=== PATIENT | male | born 1945 | race Two or more races ===

== ENCOUNTER 2017-05-11 07:11 | Outpatient (CLI) | payer MEDICARE ==
[~2017-05-11] VITALS: Ht 172.7 cm; Wt 105.0 kg
[~2017-05-11 07:11] MED LIST: /CELE20CA PO; AMLO10TA2 PO; AMLO5TAB OR; ASPI81TA85 PO; BENA25CA2 PO; CHOL4POW2 PO; DIOV160T5 OR; DOXE10CA2 OR; FISH1000 OR; GABA-279 PO; GLIP5TAB8 PO; HYDR-3713 PO; HYDR25TA6 OR; HYDR50TA8 OR; HYDROXYCHLOROQUINE OR; INFL10VL IV; ISOS30TA4 OR; LOPR100T OR; MESAPOW PO; MULTCAP PO; NEUR100C OR; NEUR300C PO; NOVO70VL SC; OCUVTAB PO; PRED5EL OR; PREVALITE PO; RANI1TAB6 PO; SIMV20TA2 OR; TIZA4CAP3 PO; TRAM50TA2 PO; VALS1TAB47 PO; WELCHOL OR; [UNRECOGNIZED DRUG - CODE] PO; [UNRECOGNIZED DRUG - OTHER]; diphenhydrAMINE 25 MG CAP PO SCH
[2017-05-11] MEDS ORDERED: NS 1,000 ML IV SCH (07:30)
[2017-05-11] MEDS ORDERED: inFLIXimab INJECTION 600 MG in NS 190 ML IV ONE (08:00)
== END 2017-05-11 10:15 | disposition home or self-care (01) ==
LOC: M INFU 07:11
PROVIDERS: ATTEND Internal Medicine Gastroenterology
DX: K51.90 Ulcerative colitis, unspecified, without complications (principal); Z79.899 Other long term (current) drug therapy; Z79.82 Long term (current) use of aspirin
CPT/HCPCS: 96413; 96415; J1745

== ENCOUNTER → 2017-06-01 | Outpatient (REF) | payer MEDICARE ==
[~2017-06-01] MED LIST changes: +CALC1TAB7 PO; -[UNRECOGNIZED DRUG - CODE] PO; -diphenhydrAMINE 25 MG CAP PO SCH
[2017-06-01 17:10] LABS: BASO % 0.5 % (0.0-1.0); EOS # 0.4 K/mm3 (0.0-0.50); EOS % 6.1 % (0.0-3.0); LARGE UNSTAINED CELL # 0.2 K/mm3 (0.0-0.4); LARGE UNSTAINED CELL % 2.3 % (0.0-4.0); LYMPH # 2.1 K/mm3 (1.5-4.5); LYMPH % 29.4 % (24.0-44.0); MEAN CORPUSCULAR HEMOGLOBIN 29.6 pg (27.0-33.0); MEAN CORPUSCULAR HGB CONC 33.3 g/dl (32.0-36.5); MEAN CORPUSCULAR VOLUME 88.9 fl (80.0-96.0); MONO # 0.5 K/mm3 (0.0-0.8); MONO % 7.9 % (0.0-5.0); NEUTROPHILS # 3.6 K/mm3 (1.8-7.7); NEUTROPHILS % 53.8 % (36.0-66.0); PLATELET COUNT, AUTOMATED 368 k/mm3 (150-450); RED CELL DISTRIBUTION WIDTH 15.4 % (11.5-14.5); WHITE BLOOD COUNT 6.7 K/mm3 (4.0-10.0)
[2017-06-01 17:49] LABS: ALBUMIN 3.9 GM/DL (3.2-5.2); ALBUMIN/GLOBULIN RATIO 1.05 (1.00-1.93); ALKALINE PHOSPHATASE 55 U/L (45-117); ALT/SGPT 30 U/L (12-78); ANION GAP 5 MEQ/L (8-16); AST/SGOT 20 U/L (15-37); BILIRUBIN,TOTAL 0.5 MG/DL (0.2-1.0); BLOOD UREA NITROGEN 26 MG/DL (7-18); CALCIUM LEVEL 8.8 MG/DL (8.8-10.2); CARBON DIOXIDE LEVEL 29 MEQ/L (21-32); CHLORIDE LEVEL 107 MEQ/L (98-107); CREATININE FOR GFR 0.94 MG/DL (0.70-1.30); GLOMERULAR FILTRATION RATE > 60.0 (>42); GLUCOSE, FASTING 149 MG/DL (83-110); POTASSIUM SERUM 4.6 MEQ/L (3.5-5.1); SODIUM LEVEL 141 MEQ/L (136-145); TOTAL PROTEIN 7.6 GM/DL (6.4-8.2)
== END ==
LOC: M SFHCCAPE 13:31
PROVIDERS: ATTEND Physician Assistant
DX: R31.0 Gross hematuria (principal); R35.0 Frequency of micturition; R39.15 Urgency of urination; B96.1 Klebsiella pneumoniae [K. pneumoniae] as the cause of diseases classified elsewhere; E11.9 Type 2 diabetes mellitus without complications; Z79.82 Long term (current) use of aspirin; Z85.46 Personal history of malignant neoplasm of prostate; Z87.891 Personal history of nicotine dependence
CPT/HCPCS: 80053; 81001; 81002; 85025; 87088; 87186; G0463

== ENCOUNTER 2017-06-29 07:06 | Outpatient (CLI) | payer MEDICARE ==
[~2017-06-29] VITALS: Ht 172.7 cm; Wt 105.0 kg
[~2017-06-29 07:06] MED LIST changes: +diphenhydrAMINE 25 MG CAP PO SCH
[2017-06-29] MEDS ORDERED: NS 1,000 ML IV SCH (07:15)
[2017-06-29] MEDS ORDERED: inFLIXimab INJECTION 600 MG in NS 190 ML IV ONE (08:00)
== END 2017-06-29 10:00 | disposition home or self-care (01) ==
LOC: M INFU 07:06
PROVIDERS: ATTEND Internal Medicine Gastroenterology
DX: K51.90 Ulcerative colitis, unspecified, without complications (principal); Z79.899 Other long term (current) drug therapy
CPT/HCPCS: 96413; 96415; J1745

== ENCOUNTER → 2020-05-01 | Outpatient (CLI) | payer MEDICARE ==
[~2020-05-01] MED LIST changes: -/CELE20CA PO; +ACET-683 PO; -AMLO10TA2 PO; +AMLO10TA5 PO; +APRI0.37 PO; +ATOR80TA59 PO; -CALC1TAB7 PO; +CALC260T PO; +CELE1CAP4 PO; +GABA-1171 PO; -GABA-279 PO; +HYDR200T3 PO; -HYDR25TA6 OR; +HYDR25TA6 PO; +HYDR500C3 PO; +INSU100I12 SQ; +INSUHUMDS SC; +INSULADS INJ; +LEVO750T13 PO; +LOSA25TA14 PO; +LOSA50TA88 PO; +METO5TAB2 PO; +RANI-397 PO; -RANI1TAB6 PO; +TIZA4CAP PO; -TIZA4CAP3 PO; -VALS1TAB47 PO; +VALS1TAB67 PO; -diphenhydrAMINE 25 MG CAP PO SCH
--- NOTE | 2020-05-01 16:27 | REP ---
ABDOMINAL SERIES: Supine and erect views of the abdomen demonstrate no evidence of free intraperitoneal air with evidence of small bowel obstruction. There is mild air and fecal material scattered throughout the colon. Metallic screws are seen in the region of the lumbosacral junction. Multiple metallic clips are seen in the pelvis. There are degenerative changes of the spine. There are scattered vascular calcifications. An accompanying view of the chest demonstrates increased interstitial markings diffusely, most compatible with diffuse interstitial fibrosis, although a superimposed interstitial pneumonitis cannot totally be excluded. Heart is normal in size. There is mild calcification of the thoracic aorta. Mediastinal silhouette is otherwise unremarkable. IMPRESSION: No free air or obstruction. Increased interstitial markings in the lungs are probably chronic in nature, but superimposed interstitial pneumonitis cannot totally be excluded. Electronically Signed by Ryan Gracia MD 05/05/2020 06:45 P
== END ==
LOC: M WUC 15:21
PROVIDERS: ATTEND Physician Assistant
DX: R10.84 Generalized abdominal pain (principal); R12 Heartburn

== ENCOUNTER 2020-05-06 11:13 | Inpatient (IN) | payer MEDICARE ==
[~2020-05-06] VITALS: Ht 172.7 cm; Wt 105.2 kg
[~2020-05-06 11:13] MED LIST changes: -ACET-683 PO; -APRI0.37 PO; -ATOR80TA59 PO; -HYDR200T3 PO; -HYDR500C3 PO; -INSU100I12 SQ; -INSUHUMDS SC; -INSULADS INJ; -LEVO750T13 PO; -LOSA25TA14 PO; -LOSA50TA88 PO; -METO5TAB2 PO
[2020-05-06] MEDS ORDERED: HYDR200T3 PO (11:38)
[2020-05-06] MEDS ORDERED: HYDR500C3 PO ×2 (11:38→22:57)
[2020-05-06] MEDS ORDERED: APRI0.37 PO (11:38)
[2020-05-06] MEDS ORDERED: INSULADS INJ (11:38)
[2020-05-06] MEDS ORDERED: LOSA25TA14 PO (11:38)
[2020-05-06] MEDS ORDERED: ATOR80TA59 PO (11:38)
[2020-05-06] MEDS ORDERED: INSU100I12 SQ (11:38)
[2020-05-06 11:54] LABS: BASO % 0.2 % (0.0-1.0); EOS % 0.2 % (0.0-3.0); HEMATOCRIT 40.1 % (42.0-52.0); HEMOGLOBIN 13.3 g/dl (13.5-17.5); LYMPH # 1.5 10^3/uL (1.5-5.0); LYMPH % 11.8 % (24.0-44.0); MEAN CORPUSCULAR HEMOGLOBIN 32.3 pg (27.0-33.0); MEAN CORPUSCULAR HGB CONC 33.2 g/dl (32.0-36.5); MEAN CORPUSCULAR VOLUME 97.3 fl (80.0-96.0); MONO # 1.2 10^3/uL (0.0-0.8); MONO % 9.8 % (0.0-5.0); NEUTROPHILS # 9.8 10^3/uL (1.5-8.5); NEUTROPHILS % 77.4 % (36.0-66.0); PLATELET COUNT, AUTOMATED 596 10^3/uL (150-450); RED BLOOD COUNT 4.12 10^6/uL (4.30-6.10); WHITE BLOOD COUNT 12.6 10^3/uL (4.0-10.0)
[2020-05-06] MEDS ORDERED: ONDANSETRON 4MG/2ML VIAL IV ONE ×2 (12:15→14:30)
[2020-05-06 12:51] LABS: ALBUMIN 3.6 GM/DL (3.2-5.2); BILIRUBIN,DIRECT 0.3 MG/DL (0.0-0.2); BILIRUBIN,TOTAL 0.9 MG/DL (0.2-1.0); CALCIUM LEVEL 9.7 MG/DL (8.8-10.2); CK-MB VALUE MASS 1.5 NG/ML (<3.6); CREATININE FOR GFR 1.3 MG/DL (0.70-1.30); MB/CK RELATIVE INDEX 0.85 (< OR =4); POTASSIUM SERUM 3.5 MEQ/L (3.5-5.1); TOTAL PROTEIN 8.2 GM/DL (6.4-8.2); TROPONIN I 0.02 NG/ML (< 0.10)
[2020-05-06] MEDS ORDERED: CIPROFLOXACIN 400 MG in IV 1 EA IV ONE (14:30)
[2020-05-06] MEDS: GASTROGRAFIN SOLUTION 30ML PO SCH ×2 (14:59→15:27)
[2020-05-06] MEDS ORDERED: ISOVUE-370 76% 100ML VIAL As Ordered ONE (16:17)
[2020-05-06] MEDS ORDERED: ONDANSETRON 4MG/2ML VIAL IV PRN (18:45)
[2020-05-06] MEDS ORDERED: DEXTROSE 50% 50 ML SYRINGE IV PRN (19:30)
[2020-05-06] MEDS ORDERED: NS 1,000 ML IV SCH (19:30)
[2020-05-06] MEDS ORDERED: GLUCAGON INJ 1MG VIAL SC PRN (19:30)
[2020-05-06] MEDS ORDERED: GLUCOSE 4GM CHEW TABLET PO PRN (19:30)
--- NOTE | 2020-05-06 19:33 | HPEPDOC ---
[facility] Medical History & Physical Date of Admission May 06, 2020 Date of Service: May 06, 2020 Attending Physician: CAROLE WU MD History and Physical CHIEF COMPLAINT: Nausea, vomiting HISTORY OF PRESENT ILLNESS: Patient is a 75 year old male with a past medical history significant for bladder cancer s/p chemotherapy in 2017 and cystectomy with diverting urostomy in 2018, prostate cancer s/p prostatectomy, ulcerative colitis on remicade infusions, and ASCVD with history of RCA stent who presented to the [facility] ER with complaint of nausea and vomiting for 1 week duration. Patient stated that about 1 week ago he had developed nausea and vomiting. He states that he also had some constipation. At first he went to Urgent Care where he received medication for his constipation. He stated that yesterday he had multiple bowel movements. He denied any bloody bowel movement. He denies any abdominal pain. This morning he states that he continued to develop nausea and vomiting as well as decreased appetite. He has been unable to tolerate any PO intake. He subsequently presented to the ED. In the ED the patient was vitally stable. He was hypertensive on presentation. He had a mild leukocytosis. CT imaging of the abdomen and pelvis was obtained which demonstrated distended stomach and possible gastric outlet obstruction. Surgery was contacted through the ER with recommendations for medical management for now. Hospitalist service was consulted PAST MEDICAL HISTORY: 1. Bladder Cancer in 2017 s/p cystectomy and diverting urostomy 2. Prostatic Cancer s/p Prostatectomy 3. ASCVD s/p RCA stent in 1998 4. Diabetes Mellitus Type 2 5. Bilateral Carpal Tunnel 6. Hypertension 7. Ulcerative Colitis on Remicade PAST SURGICAL HISTORY: 1. Cystectomy with Diverting urostomy 2. Prostatectomy 2/2 Prostatic Cancer 3. Carpal Tunnel Release SOCIAL HISTORY: Patient is and lives at home with his . He spends [place] in [place] and his [place] in [place]. He is a former smoker. He started when he was 18 and smoked about 2 ppd until 1995. He was a heavy drinker in the past but quit in 1998. He denies any IV or illicit drug use FAMILY HISTORY: Family history is positive for HTN and ASCVD ALLERGIES: Please see below. REVIEW OF SYSTEMS: CONSTITUTIONAL: Denies fevers, chills. Denies unintentional weight loss or weight gain HEENT: Denies changes in vision. Denies difficulty swallowing CARDIOVASCULAR: Denies chest pain. denies palpitations RESPIRATORY: Denies shortness of breath. Denies cough GASTROINTESTINAL: Admits to nausea and vomiting and constipation. Denies bloody stools. Denies abdominal pain GENITOURINARY: Denies changes in urostomy output SKIN: Denies rashes or lesions MUSCULOSKELETAL: Denies muscle weakness NEUROLOGICAL: Denies changes in gait or speech PSYCHIATRIC: Denies depression or anxiety ENDOCRINE: Denies heat intolerance or cold intolerance HEMATOLOGIC/LYMPHATIC: Denies easy bruising or bleeding. Denies history of DVT or PE HOME MEDICATIONS: Please see below. PHYSICAL EXAMINATION: VITAL SIGNS: Temperature 97.7, pulse 99, respiratory rate 18, blood pressure 149/79, pulse oximetry 92% on room air. GENERAL APPEARANCE: Awake, alert, and oriented. Appears in no acute distress. Lying comfortably in bed. HEENT: Atrauamtic, normocephalic. Eyes are nonicteric. Trachea is midline. NG tube is in place and suction gastric contents CARDIOVASCULAR: normal S1, S2. Regular rate and rhythm. No clicks, rubs, or murmurs LUNGS: Clear vesicular breath sounds bilaterally. Good respiratory effort. No wheezes, rhonchi, or rales. Symmetric chest expansion. ABDOMEN: Soft, nondistended. Nontender. Normoactive bowel sounds. Urostomy bag in place with clear appearing urine. EXTREMITIES: No edema. Full and equal pulses in bilateral upper and lower extremities NEUROLOGICAL: No focal neurological deficits PSYCHIATRIC: Mood and affect appear appropriate LABORATORY DATA: See below. IMAGING: CT abdomen and pelvis demonstrating distended stomach with possible partial gastric outlet obstruction, bilateral hydronephrosis w/ileal diversion. MICROBIOLOGY: Please see below. ASSESSMENT: Patient is a 75 year old male who presented to [facility] with complaint of nausea and vomiting for 1 week duration and found to have a distended stomach wi th partial gastric outlet obstruction . PLAN: 1. Nausea and Vomiting 2/2 Gastric Outlet Obstruction vs ileus -Patient presenting with stomach distension per CT imaging. NG tube has been placed and stomach has been decompressed. Patient noted improvement in nausea and vomiting s/p NG tube placement. ER has contacted General surgery who recommended medical management for now as the cause may be secondary to an ileus -NG tube inserted and on LIS -NPO -Will start empiric antibiotic coverage with Rocephin and Flagyl -General Surgery Consulted. Recommendations appreciated 2. HTN -Currently normotensive. -NPO will resume meds once tolerating PO 3. DMII -Finger Sticks ACHS due to NPO status 4. Ulcerative Colitis -Will hold patients maintenance medication while NPO -his ulcerative colitis has been in remission for many years. He denies any bloody stools or abdominal pain. 5. UTI -Urine from urostomy bag appears dirty. Will culture. He is on empiric coverage with Rocephin and Flagyl 6. DVT Prophylaxis -Mechanical in light of possible needed procedure Vital Signs Vital Signs Date Time Temp Pulse Resp B/P (MAP) Pulse Ox O2 Delivery O2 Flow Rate FiO2 05/06/20 17:45 101 05/06/20 16:15 149/79 (102) 92 Room Air 05/06/20 14:56 96.9 20 Laboratory Data Labs 24H Laboratory Tests 2 05/06/20 11:26: Immature Granulocyte % (Auto) 0.6, Neutrophils (%) (Auto) 77.4H, Lymphocytes (%) (Auto) 11.8L, Monocytes (%) (Auto) 9.8H, Eosinophils (%) (Auto) 0.2, Basophils (%) (Auto) 0.2, Neutrophils # (Auto) 9.8H, Lymphocytes # (Auto) 1.5, Monocytes # (Auto) 1.2H, Eosinophils # (Auto) 0.0, Basophils # (Auto) 0.0, Nucleated Red Blood Cells % (auto) 0.0, Anion Gap 10, Glomerular Filtration Rate 57.0, Calcium Level 9.7, Total Bilirubin 0.9, Direct Bilirubin 0.3H, Aspartate Amino Transf (AST/SGOT) 43H, Alanine Aminotransferase (ALT/SGPT) 65, Alkaline Phosphatase 100, Total Creatine Kinase 177, Creatine Kinase MB 1.5, Creatine Kinase MB Relative Index 0.85, Troponin I 0.02, Total Protein 8.2, Albumin 3.6, Albumin/Globulin Ratio 0.8, Lipase 160 05/06/20 11:42: Urine Color YELLOW, Urine Appearance CLOUDYH, Urine pH 5.0, Urine Specific [place] 1.016, Urine Protein 1+H, Urine Glucose (UA) NEGATIVE, Urine Ketones 1+H, Urine Blood NEGATIVE, Urine Nitrite NEGATIVE, Urine Bilirubin NEGATIVE, Urine Urobilinogen 0.2, Urine Leukocyte Esterase 3+H, Urine WBC (Auto) 132H, Urine RBC (Auto) 9H, Urine Hyaline Casts (Auto) 4, Urine Bacteria (Auto) 3+H, Urine Squamous Epithelial Cells 0, Urine Mucus (Auto) SMALL, Urine Sperm (Auto) CBC/BMP Laboratory Tests 05/06/20 11:26 Microbiology Microbiology 05/06/20 Urine Culture, Received Pending Home Medications Scheduled Amlodipine Besylate (Amlodipine Besylate) 10 Mg Tab, 10 MG PO DAILY Atorvastatin Calcium (Atorvastatin Calcium) 80 Mg Tablet, 80 MG PO DAILY Glipizide (Glipizide) 5 Mg Tab, 5 MG PO BIDWM Hydrochlorothiazide (Hydrochlorothiazide) 25 Mg Tab, 25 MG OR DAILY Hydroxychloroquine Sulfate (Hydroxychloroquine Sulfate) 200 Mg Tablet, 200 MG PO BID Hydroxyurea (Hydroxyurea) 500 Mg Capsule, 500 MG PO DAILY Infliximab Injection (Remicade) 100 Mg/10 Ml Vial, 100 MG IV ASDIRECTED Insulin Glargine (Lantus) 100 Unit/1 Ml Vial, 35 UNIT INJ DAILY Insulin Regular, Human (NovoLIN R Flexpen) 100 Unit/1 Ml Insuln.pen, 100 UNIT SQ PRN Isosorbide Mononitrate (Isosorbide Mononitrate Er) 30 Mg Tab, 30 MG OR DAILY Losartan Potassium (Losartan Potassium) 25 Mg Tablet, 25 MG PO DAILY Mesalamine (Apriso) 0.375 Gm Cap.er.24h, 4 CAP PO DAILY Metoprolol Tartrate (Lopressor) 100 Mg Tab, 100 MG OR BID [place]-3 Fatty Acids/Fish Oil (Fish Oil 1,000 mg Capsule) 1,000 Mg Cap, 1,000 MG OR BID Vits A,C,E/Lutein/Minerals (Ocuvite with Lutein Tablet) 1 Tab Tab, 1 TAB PO BID Scheduled PRN Celecoxib (Celebrex) 200 Mg Cap, 200 MG PO PRN PRN for pain Allergies Coded Allergies: No Known Allergies (Unverified , 05/06/20) A-FIB/CHADSVASC A-FIB History Current/History of A-Fib/PAF?: No GME ATTESTATION GME ATTESTATION My faculty preceptor for this patient encounter was physically present during the encounter and was fully available. All aspects of the patient interview, examination, medical decision making process, and medical care plan development were reviewed and approved by the faculty preceptor. The faculty preceptor is aware and concurs with the plan as stated in the body of this note and will attest to such by his/her cosignature. ATTENDING NOTE I, Carole Wu, have independently examined this patient and performed my own physical exam, as well as reviewed the documentation and edited where necessary. I have discussed in detail with the resident / student the findings and plan of treatment as documented by the resident / student and edited their note. I agree with their findings and treatment plan and have edited their documentation. I will continue to follow the patient during this hospital stay. CHI TURNER DO May 06, 2020 19:33 CAROLE WU MD May 06, 2020 22:30
[2020-05-06 21:57] VITALS: BP 151/78
[2020-05-06] MEDS: metroNIDAZOLE 500 MG in IV 1 EA IV SCH (22:50)
[2020-05-06] MEDS ORDERED: INSUHUMDS SC (22:57)
[2020-05-06] MEDS ORDERED: LOSA50TA88 PO (22:57)
[2020-05-06] MEDS ORDERED: ACET-683 PO (22:57)
[2020-05-06] MEDS ORDERED: ACETAMINOPHEN *IV* 650 MG in IV 1 EA IV ONE (23:00)
[2020-05-07] MEDS: cefTRIAXone SOD 2 GM in D5W MINI-BAG PLUS 50 ML IV SCH ×2 (01:01→21:36)
--- NOTE | 2020-05-07 01:22 | ECGEPIP ---
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
[2020-05-07] MEDS ORDERED: PANTOPRAZOLE 40MG VIAL (C9113 PER 1) IV ONE (02:30)
[2020-05-07] MEDS: metroNIDAZOLE 500 MG in IV 1 EA IV SCH ×3 (03:10→20:26)
[2020-05-07 06:00] VITALS: BP 143/75
[2020-05-07 06:40] LABS: HEMATOCRIT 37.7 % (42.0-52.0); HEMOGLOBIN 12.5 g/dl (13.5-17.5); MEAN CORPUSCULAR HEMOGLOBIN 32.6 pg (27.0-33.0); MEAN CORPUSCULAR HGB CONC 33.2 g/dl (32.0-36.5); MEAN CORPUSCULAR VOLUME 98.4 fl (80.0-96.0); PLATELET COUNT, AUTOMATED 519 10^3/uL (150-450); RED BLOOD COUNT 3.83 10^6/uL (4.30-6.10); WHITE BLOOD COUNT 12.5 10^3/uL (4.0-10.0)
--- NOTE | 2020-05-07 07:14 | CR ---
DATE OF CONSULTATION: 05/06/2020 REASON FOR CONSULTATION: Question gastric outlet obstruction. BRIEF HISTORY OF PRESENT ILLNESS: The patient is a 75-year-old male who has had a 1-week history of nausea and vomiting. He went to Urgent Care and received some medication for constipation. He had multiple bowel movements yesterday, but has continued to have nausea and vomiting. Today, he came to the emergency room because of decreased by mouth intake. He has had numerous abdominal surgeries and presents with a hugely distended stomach and evidence of a possible urinary tract infection. PAST MEDICAL HISTORY: Significant for history of bladder cancer, history of cystectomy, history of diverting ileal conduit, history of prostate cancer with prostatectomy, history of ulcerative colitis, history of coronary artery disease with stenting, history of diabetes mellitus, hypertension, and history of carpal tunnel release. MEDICATIONS: Include amlodipine, atorvastatin, glipizide, hydrochlorothiazide, hydroxychloroquine, hydroxyurea, Remicade, insulin, isosorbide mononitrate, losartan, APRISO/mesalamine Lopressor, fish oil and Ocuvite as well as p.r.n. Celebrex. PHYSICAL EXAMINATION: Reveals a 75-year-old who looks stated age. HEENT is unremarkable. He does have an NG tube in that is draining somewhat feculent material. Lungs are clear. Heart is regular with multiple extra beats. Abdomen is softly distended, nontender. No guarding. No rebound. No peritoneal signs are appreciated. No significant hernias, although he has a significant diastasis of his entire lower abdominal wall. IMPRESSION AND PLAN: The patient has some gastric distention and probably gastric emptying issues. It is most likely that it is a gastric ileus associated with infection, although I am not seeing a specific mechanical point of obstruction. Other possibilities obviously are a chronic diabetic gastroparesis with an additional acute distention mixed in. It is hard to know at this point, but the treatment is all the same with NG tube decompression at this time until we see how he is doing over the next 24-48 hours. I anticipate if his NG tube output decreases substantially and his bowel seems to have return of function, we can perform an upper GI with small-bowel follow through to rule out any other significant abnormality. At this point, I do not see evidence of small bowel obstruction. His ureterostomy does come up very close to the duodenal sweep, but I am not seeing any specific adhesions in this area that might be contributing to his current issue. Thus, we will continue with current treatment for now and see how he is doing tomorrow.
[2020-05-07 07:46] LABS: ALT/SGPT 45 U/L (12-78); BILIRUBIN,TOTAL 0.5 MG/DL (0.2-1.0); BLOOD UREA NITROGEN 32 MG/DL (7-18); CALCIUM LEVEL 9.3 MG/DL (8.8-10.2); CARBON DIOXIDE LEVEL 38 MEQ/L (21-32); CHLORIDE LEVEL 95 MEQ/L (98-107); CREATININE FOR GFR 1.21 MG/DL (0.70-1.30); GLOMERULAR FILTRATION RATE > 60.0 (>42); GLUCOSE, FASTING 202 MG/DL (70-100); POTASSIUM SERUM 2.9 MEQ/L (3.5-5.1); SODIUM LEVEL 140 MEQ/L (136-145); TOTAL PROTEIN 7.7 GM/DL (6.4-8.2)
[2020-05-07] MEDS: PANTOPRAZOLE 40MG VIAL (C9113 PER 1) IV SCH (08:18)
[2020-05-07] MEDS: KCL 40MEQ in NS 1000ML 1,000 ML IV SCH (08:18)
[2020-05-07] MEDS: KCL 10MEQ/100ML SWI (KRUN) 10 MEQ in IV 1 EA IV SCH ×2 (08:18→10:39)
--- NOTE | 2020-05-07 08:35 | REP ---
PORTABLE CHEST X-RAY: Single view. HISTORY: Post NG tube placement. FINDINGS: The nasogastric tube has been passed and is seen in the left upper quadrant. Diffuse interstitial changes are seen in the lung bauer consistent with fibrosis. Pleural angles are sharp. No definite infiltrate is seen. Heart is not enlarged. The aorta is calcific and somewhat tortuous. IMPRESSION: NG tube appears in good position. Evidence of COPD. Electronically Signed by Saurabh Frank MD 05/07/2020 09:30 A
[2020-05-07] MEDS: HumaLOG INSULIN (NovoLOG) PER UNIT SC SCH ×3 (08:53→17:49)
[2020-05-07 10:27] LABS: MAGNESIUM LEVEL 2.7 MG/DL (1.8-2.4)
--- NOTE | 2020-05-07 12:22 | IPNPDOC ---
Date Seen The patient was seen on 05/07/20. Progress Note SUBJECTIVE: Patient was seen and examined this morning. He continues to have output from his NG tube although it has decreased. He does have some nausea/reflux. He denies any abdominal pain. He is not having bowel movements and not passing gas. There were no adverse events reported overnight OBJECTIVE PHYSICAL EXAMINATION: VITAL SIGNS: Please see below. GENERAL APPEARANCE: Awake, alert, and oriented. Appears in no acute distress. Lying comfortably in bed. HEENT: Atraumatic, normocephalic. Eyes are nonicteric. Trachea is midline. NG tube is in place. Gastric content/bile in drain CARDIOVASCULAR: normal S1, S2. Regular rate and rhythm. No clicks, rubs, or murmurs LUNGS: Clear vesicular breath sounds bilaterally. Good respiratory effort. No wheezes, rhonchi, or rales. Symmetric chest expansion. ABDOMEN: Soft, nondistended. Nontender. Normoactive bowel sounds. Urostomy bag in place with clear appearing urine. EXTREMITIES: No edema. Full and equal pulses in bilateral upper and lower extremities NEUROLOGICAL: No focal neurological deficits PSYCHIATRIC: Mood and affect appear appropriate LABORATORY DATA, IMAGING STUDIES, MICROBIOLOGY: Please see below. DVT prophylaxis ordered?: Mechanical ASSESSMENT: Patient is a 75 year old male who presented to [facility] with complaint of nausea and vomiting for 1 week duration and found to have a distended stomach with partial gastric outlet obstruction . PLAN: 1. Nausea and Vomiting 2/2 Gastric Outlet Obstruction vs ileus -Patient presented with stomach distension per CT imaging. NG tube has been placed and stomach has been decompressed. Patient noted improvement in nausea and vomiting s/p NG tube placement. -Patient has note had a bowel movement and had not passed gas. He remains NPO with NG tube in place. Surgery has seen patient. He may need surgery if his bowel obstruction does not improve -Continue empiric antibiotic coverage with Rocephin and Flagyl -General Surgery Consulted. Recommendations appreciated -Patient was hypokalemic today. Will order 2 K runs and add Potassium to his fluids 2. HTN -Currently normotensive. -NPO will resume meds once tolerating PO 3. DMII -Finger Sticks ACHS due to NPO status 4. Ulcerative Colitis -Will hold patients maintenance medication while NPO -his ulcerative colitis has been in remission for many years. He denies any bloody stools or abdominal pain. 5. UTI -Urine from urostomy bag appears dirty. Will culture. He is on empiric coverage with Rocephin and Flagyl 6. DVT Prophylaxis -Mechanical in light of possible needed procedure VS, I&O, 24H, Fishbone Vital Signs/I&O Vital Signs Date Time Temp Pulse Resp B/P (MAP) Pulse Ox O2 Delivery O2 Flow Rate FiO2 05/07/20 06:00 97.5 89 20 143/75 (97) 90 Nasal Cannula 2.0 I&O- Last 24 Hours up to 6 AM 05/07/20 06:00 Intake Total 900 ml Output Total 4775 ml Balance -3875 ml Laboratory Data 24H LABS Laboratory Tests 2 05/06/20 22:23: Bedside Glucose (Misc Panel) 238H 05/07/20 00:49: Bedside Glucose (Misc Panel) 202H 05/07/20 05:06: Bedside Glucose (Misc Panel) 196H 05/07/20 06:17: Nucleated Red Blood Cells % (auto) 0.0, Anion Gap 7L, Glomerular Filtration Rate > 60.0, Calcium Level 9.3, Magnesium Level 2.7H, Total Bilirubin 0.5, Aspartate Amino Transf (AST/SGOT) 24, Alanine Aminotransferase (ALT/SGPT) 45, Alkaline Phosphatase 88, Total Protein 7.7, Albumin 3.0L, Albumin/Globulin Ratio 0.6 05/07/20 12:03: Bedside Glucose (Misc Panel) 177H CBC/BMP Laboratory Tests 05/07/20 06:17 Microbiology Microbiology 05/06/20 Urine Culture, Received Pending GME ATTESTATION GME ATTESTATION My faculty preceptor for this patient encounter was physically present during the encounter and was fully available. All aspects of the patient interview, examination, medical decision making process, and medical care plan development were reviewed and approved by the faculty preceptor. The faculty preceptor is aware and concurs with the plan as stated in the body of this note and will attest to such by his/her cosignature. ATTENDING NOTE PT WAS SEEN AND EXAMINED BY ME, AGREE WITH THE ABOVE ASSESSMENT AND PLAN. CHI TURNER DO May 07, 2020 12:22 ALLIE NORRIS MD May 08, 2020 14:23
[2020-05-07 14:00] VITALS: BP 137/74
[2020-05-07] MEDS ORDERED: diphenhydrAMINE 50MG/ML VIAL (J1200) IV PRN (17:30)
[2020-05-07 22:00] VITALS: BP 132/75
[2020-05-08] MEDS: KCL 40MEQ in NS 1000ML 1,000 ML IV SCH ×2 (00:08→03:52)
[2020-05-08] MEDS: HumaLOG INSULIN (NovoLOG) PER UNIT SC SCH ×4 (00:08→18:10)
[2020-05-08] MEDS: metroNIDAZOLE 500 MG in IV 1 EA IV SCH ×3 (03:53→20:55)
[2020-05-08 06:00] VITALS: BP 144/84
[2020-05-08 06:11] LABS: HEMATOCRIT 39.2 % (42.0-52.0); HEMOGLOBIN 12.5 g/dl (13.5-17.5); MEAN CORPUSCULAR HEMOGLOBIN 32.1 pg (27.0-33.0); MEAN CORPUSCULAR HGB CONC 31.9 g/dl (32.0-36.5); MEAN CORPUSCULAR VOLUME 100.8 fl (80.0-96.0); PLATELET COUNT, AUTOMATED 551 10^3/uL (150-450); RED BLOOD COUNT 3.89 10^6/uL (4.30-6.10); WHITE BLOOD COUNT 11.6 10^3/uL (4.0-10.0)
[2020-05-08 06:42] LABS: ALBUMIN 3.1 GM/DL (3.2-5.2); ALT/SGPT 38 U/L (12-78); BILIRUBIN,TOTAL 0.5 MG/DL (0.2-1.0); BLOOD UREA NITROGEN 24 MG/DL (7-18); CALCIUM LEVEL 8.9 MG/DL (8.8-10.2); CARBON DIOXIDE LEVEL 29 MEQ/L (21-32); CHLORIDE LEVEL 104 MEQ/L (98-107); GLOMERULAR FILTRATION RATE > 60.0 (>42); GLUCOSE, FASTING 205 MG/DL (70-100); POTASSIUM SERUM 3.8 MEQ/L (3.5-5.1); SODIUM LEVEL 143 MEQ/L (136-145); TOTAL PROTEIN 7.1 GM/DL (6.4-8.2)
[2020-05-08] MEDS: NS 1,000 ML IV SCH (08:46)
[2020-05-08] MEDS: PANTOPRAZOLE 40MG VIAL (C9113 PER 1) IV SCH (08:46)
[2020-05-08] MEDS: DOCUSATE SOD LIQ 100MG/10ML UDC GT SCH ×2 (09:00→21:13)
[2020-05-08] MEDS ORDERED: E-Z-PAQUE 96% w/w SUSP 176GM BTL As Ordered ONE (11:50)
--- NOTE | 2020-05-08 13:56 | IPN ---
DATE: 05/07/2020 The patient seems to be doing well overnight, although his nasogastric (NG) tube has had a significant amount of drainage. He is not complaining of any abdominal pain. He has not had any flatus or bowel movements, and otherwise has been doing well. He has been afebrile, but his white count is still elevated at 12.5 this morning. He is not complaining of any nausea. His drainage is more bilious today than it was yesterday. On his physical exam, abdomen is definitely less distended than it was yesterday, mostly in the epigastric area. No guarding. No rebound. No peritoneal signs are appreciated. IMPRESSION/PLAN: The patient has probably a gastric ileus that is added to some mild gastroparesis that this individual has given the significant amount of gastric distension he had this typically would be incredibly symptomatic for the average individual. So, I anticipate that he probably has some baseline gastroparesis. In any case, at this point, decompressing him should resolve his gastric distension and I anticipate as his infection gets under control his ileus will resolve as well, and his stomach will open up nicely. At this point, I anticipate he does not have a true obstruction. But any case at this point, it is reasonable to continue with his current treatment with NG tube decompression. Because were getting to the weekend I would recommend a small bowel follow through from his NG tube tomorrow and depending on the results of that, that obviously will determine our next up.
--- NOTE | 2020-05-08 14:17 | IPN ---
DATE: 05/08/2020 The patient's white count did drop a little bit this morning down to 11.6 from 12.5 yesterday. He feels better. He has had some flatus and he does feel some more rumbling around in his abdomen, i.e. he has bowel sounds that are much more active today, just unable to hear them on his exam. His nasogastric (NG) tube output has significantly dropped off overnight and it has some minimal bile but seems to be clearing up to some extent as well. Otherwise, his abdomen is soft, nontender and nondistended. IMPRESSION/PLAN: The patient's gastric ileus/drainage seems to have improved substantially. I anticipate this small bowel follow through will show no significant abnormalities. If that is the case, then his NG tube can be removed and he can be started on a clear liquid diet for 24 hours and then progress to a regular diet, and then eventually discharged to home when he is doing well. He is currently not on any stool softeners. I do feel that given his history of some constipation recently it may be reasonable to start him on some stool softeners.
--- NOTE | 2020-05-08 16:04 | IPNPDOC ---
Date Seen The patient was seen on 05/08/20. Progress Note SUBJECTIVE: Patient was seen and examined this morning. He currently states that he feels well. He denies any nausea or abdominal pain. He does state that he has had some difficulty sleeping last night and states he is frustrated and scared with what is going on. He is scheduled for an upper GI series with small bowel follow through today. He is currently passing gas. His NG tube output has de creased. OBJECTIVE PHYSICAL EXAMINATION: VITAL SIGNS: Please see below. GENERAL APPEARANCE: Awake, alert, and oriented. Appears in no acute distress. Lying comfortably in bed. HEENT: Atraumatic, normocephalic. Eyes are nonicteric. Trachea is midline. NG tube is in place. CARDIOVASCULAR: normal S1, S2. Regular rate and rhythm. No clicks, rubs, or murmurs LUNGS: Clear vesicular breath sounds bilaterally. Good respiratory effort. No wheezes, rhonchi, or rales. Symmetric chest expansion. ABDOMEN: Soft, nondistended. Nontender. Positive bowel sound. Urostomy bag in place with clear appearing urine. EXTREMITIES: No edema. Full and equal pulses in bilateral upper and lower extremities NEUROLOGICAL: No focal neurological deficits PSYCHIATRIC: Mood and affect appear appropriate LABORATORY DATA, IMAGING STUDIES, MICROBIOLOGY: Please see below. DVT prophylaxis ordered?: Heparin ASSESSMENT: Patient is a 75 year old male who presented to [facility] with complaint of nausea and vomiting for 1 week duration and found to have a distended stomach with partial gastric outlet obstruction . PLAN: 1. Nausea and Vomiting 2/2 Gastric Outlet Obstruction vs ileus -Patient presented with stomach distension per CT imaging. NG tube has been placed and stomach has been decompressed. Patient noted improvement in nausea and vomiting s/p NG tube placement. -Patient is passing gas. He has not had a bowel movement. -Upper GI with small bowel follow through ordered for today. If normal patient may be able to have diet advanced and NG tube removed. -Continue empiric antibiotic coverage with Rocephin and Flagyl -General Surgery Consulted. Recommendations appreciated 2. HTN -Currently normotensive. -NPO will resume meds once tolerating PO 3. DMII -Finger Sticks ACHS due to NPO status 4. Ulcerative Colitis -Will hold patients maintenance medication while NPO -his ulcerative colitis has been in remission for many years. He denies any bloody stools or abdominal pain. 5. UTI -Urine from urostomy bag appears dirty. Will culture. He is on empiric coverage with Rocephin and Flagyl 6. Difficulty Sleeping -Patient has difficulty sleeping. Patient received Benadryl with improvement. 7. DVT Prophylaxis -Heparin SQ DISPOSITION: If normal small bowel follow through then will advance diet to clear liquids. Discharge is pending tolerance of diet. Likely > 48 hours VS, I&O, 24H, Fishbone Vital Signs/I&O Vital Signs Date Time Temp Pulse Resp B/P (MAP) Pulse Ox O2 Delivery O2 Flow Rate FiO2 05/08/20 06:00 97.6 96 16 144/84 (104) 93 Nasal Cannula 2.0 I&O- Last 24 Hours up to 6 AM 05/08/20 06:00 Intake Total 0 ml Output Total 2075 ml Balance -2075 ml Laboratory Data 24H LABS Laboratory Tests 2 05/07/20 17:41: Bedside Glucose (Misc Panel) 165H 05/07/20 20:50: Bedside Glucose (Misc Panel) 122H 05/07/20 23:52: Bedside Glucose (Misc Panel) 137H 05/08/20 05:47: Bedside Glucose (Misc Panel) 210H, Nucleated Red Blood Cells % (auto) 0.0, Anion Gap 10, Glomerular Filtration Rate > 60.0, Calcium Level 8.9, Total Bilirubin 0.5, Aspartate Amino Transf (AST/SGOT) 26, Alanine Aminotransferase (ALT/SGPT) 38, Alkaline Phosphatase 90, Total Protein 7.1, Albumin 3.1L, Albumin/Globulin Ratio 0.8 05/08/20 11:29: Bedside Glucose (Misc Panel) 147H CBC/BMP Laboratory Tests 05/08/20 05:47 Microbiology Microbiology 05/06/20 Urine Culture - Preliminary, Resulted Escherichia Coli GME ATTESTATION GME ATTESTATION My faculty preceptor for this patient encounter was physically present during the encounter and was fully available. All aspects of the patient interview, examination, medical decision making process, and medical care plan development were reviewed and approved by the faculty preceptor. The faculty preceptor is aware and concurs with the plan as stated in the body of this note and will attest to such by his/her cosignature. GME ATTESTATION GME ATTESTATION My faculty preceptor for this patient encounter was physically present during the encounter and was fully available. All aspects of the patient interview, examination, medical decision making process, and medical care plan development were reviewed and approved by the faculty preceptor. The faculty preceptor is aware and concurs with the plan as stated in the body of this note and will attest to such by his/her cosignature. ATTENDING NOTE Pt seen and examined by me. Agree with the above assessment and plan. CHI TURNER DO May 08, 2020 16:04 ALLIE NORRIS MD May 09, 2020 15:12
[2020-05-08] MEDS ORDERED: diphenhydrAMINE 50MG/ML VIAL (J1200) IV PRN (17:45)
--- NOTE | 2020-05-08 17:51 | REP ---
UPPER GI SINGLE CONTRAST AND SMALL BOWEL FOLLOW-THROUGH The procedure was performed under the direct supervision of Dr. Frank. The images were reviewed with Dr. Frank. The weight count operator film shows no organomegaly or pathological masses. The intestinal gas pattern is nonspecific. There are lumbar fixation screws in place. There are multiple surgical clips in the pelvis. Liquid barium was administered through the NG tube. There is mild gastric distension. The stomach is grossly normal. There is mild deformity of the post bulbar duodenum with spasm. Some contrast does advance into the remainder of the small bowel. At the three hour and 35-minute film there is contrast seen in the distal ileum. At this time there is still a large amount of contrast in the stomach. Impression: There is mild gastric distension. There is mild deformity in the post bulbar duodenum spasm. Some contrast does advance into the remainder of the small bowel. At the three our and 35-minute film there is still a large amount of contrast in the stomach. 3 minutes of fluoroscopy time was utilized for this procedure. Electronically Signed by JIMMY Head 05/08/2020 05:25 P Electronically Signed by Saurabh Frank MD 05/08/2020 05:40 P
[2020-05-08] MEDS: HEPARIN SOD (PORCINE) 5000UNITS/ML VIAL (J1644 PER 1000UNITS) SQ SCH (21:09)
[2020-05-08] MEDS: cefTRIAXone SOD 2 GM in D5W MINI-BAG PLUS 50 ML IV SCH (21:50)
[2020-05-08 22:00] VITALS: BP 150/83
[2020-05-08] MEDS: METOCLOPRAMIDE INJ 10MG/2ML VIAL (J2765 PER 1) IV SCH (22:25)
[2020-05-09] MEDS: NS 1,000 ML IV SCH ×2 (02:28→09:41)
[2020-05-09] MEDS: METOCLOPRAMIDE INJ 10MG/2ML VIAL (J2765 PER 1) IV SCH ×4 (04:10→21:23)
[2020-05-09] MEDS: metroNIDAZOLE 500 MG in IV 1 EA IV SCH ×3 (04:10→20:03)
[2020-05-09 06:00] VITALS: BP 161/82
[2020-05-09] MEDS: HumaLOG INSULIN (NovoLOG) PER UNIT SC SCH ×5 (06:06→21:00)
[2020-05-09] MEDS: HEPARIN SOD (PORCINE) 5000UNITS/ML VIAL (J1644 PER 1000UNITS) SQ SCH ×3 (06:06→21:23)
[2020-05-09 07:01] LABS: HEMATOCRIT 36.7 % (42.0-52.0); HEMOGLOBIN 11.7 g/dl (13.5-17.5); MEAN CORPUSCULAR HEMOGLOBIN 32.5 pg (27.0-33.0); MEAN CORPUSCULAR HGB CONC 31.9 g/dl (32.0-36.5); MEAN CORPUSCULAR VOLUME 101.9 fl (80.0-96.0); PLATELET COUNT, AUTOMATED 467 10^3/uL (150-450); WHITE BLOOD COUNT 9.1 10^3/uL (4.0-10.0)
[2020-05-09 07:26] LABS: ALBUMIN 2.9 GM/DL (3.2-5.2); ALT/SGPT 32 U/L (12-78); BILIRUBIN,TOTAL 0.6 MG/DL (0.2-1.0); BLOOD UREA NITROGEN 21 MG/DL (7-18); CALCIUM LEVEL 8.6 MG/DL (8.8-10.2); CARBON DIOXIDE LEVEL 25 MEQ/L (21-32); CHLORIDE LEVEL 108 MEQ/L (98-107); CREATININE FOR GFR 0.92 MG/DL (0.70-1.30); GLOMERULAR FILTRATION RATE > 60.0 (>42); GLUCOSE, FASTING 175 MG/DL (70-100); POTASSIUM SERUM 3.3 MEQ/L (3.5-5.1); SODIUM LEVEL 143 MEQ/L (136-145); TOTAL PROTEIN 6.5 GM/DL (6.4-8.2)
[2020-05-09] MEDS: PANTOPRAZOLE 40MG VIAL (C9113 PER 1) IV SCH (09:41)
[2020-05-09] MEDS: DOCUSATE SOD LIQ 100MG/10ML UDC GT SCH ×2 (09:41→20:05)
--- NOTE | 2020-05-09 12:12 | IPNPDOC ---
Date Seen The patient was seen on 05/09/20. Progress Note SUBJECTIVE: Patient was seen and examined this morning. He received an upper GI series with small bowel follow through yesterday. It appears that a large amount of the contrast remained in the stomach. He continues to pass gas and denies any abdominal pain. The patient otherwise has no complaints. OBJECTIVE PHYSICAL EXAMINATION: VITAL SIGNS: Please see below. GENERAL APPEARANCE: Awake, alert, and oriented. Appears in no acute distress. Lying comfortably in bed. HEENT: Atraumatic, normocephalic. Eyes are nonicteric. Trachea is midline. NG tube is in place. CARDIOVASCULAR: normal S1, S2. Regular rate and rhythm. No clicks, rubs, or murmurs LUNGS: Clear vesicular breath sounds bilaterally. Good respiratory effort. No wheezes, rhonchi, or rales. Symmetric chest expansion. ABDOMEN: Soft, nondistended. Nontender. Positive bowel sound. Urostomy bag in place with clear appearing urine. EXTREMITIES: No edema. Full and equal pulses in bilateral upper and lower extremities NEUROLOGICAL: No focal neurological deficits PSYCHIATRIC: Mood and affect appear appropriate LABORATORY DATA, IMAGING STUDIES, MICROBIOLOGY: Please see below. DVT prophylaxis ordered?: Heparin ASSESSMENT: Patient is a 75 year old male who presented to [facility] with complaint of nausea and vomiting for 1 week duration and found to have a distended stomach with partial gastric outlet obstruction PLAN: 1. Nausea and Vomiting 2/2 Gastric Outlet Obstruction vs ileus -Patient received upper GI series with small bowel follow-through yesterday. He continues to have mild gastric distension and a large amount of contrast remained in the stomach. The patient likely has a component of gastroparesis however a gastric outlet obstruction is still a concern. He does have output from his NG tube which is mostly contrast material. An abdominal flat plate was ordered by General Surgery today -Patient is passing gas -Continue empiric antibiotic coverage with Rocephin and Flagyl. -General Surgery Consulted. Recommendations appreciated -Will continue to monitor electrolytes and replete prn. Iv fluids changed to NS with 40mEq of Potassium 2. HTN -Currently normotensive. -NPO will resume meds once tolerating PO 3. DMII -Finger Sticks ACHS due to NPO status 4. Ulcerative Colitis -Will hold patients maintenance medication while NPO -his ulcerative colitis has been in remission for many years. He denies any bloody stools or abdominal pain. 5. UTI -Urine from urostomy bag appears dirty. -Culture positive for E. coli and Entercoccus faecalis. He is currently on Rocephin and flagyl 6. Difficulty Sleeping -Patient has difficulty sleeping. Patient received Benadryl with improvement. 7. DVT Prophylaxis -Heparin SQ DISPOSITION: Disposition is pending on improvement of the patients obstruction. He may require surgical intervention if there is no improvement over the next 24-48 hours VS, I&O, 24H, Fishbone Vital Signs/I&O Vital Signs Date Time Temp Pulse Resp B/P (MAP) Pulse Ox O2 Delivery O2 Flow Rate FiO2 05/09/20 06:00 99.1 99 18 161/82 (108) 92 05/08/20 22:00 Nasal Cannula 2.0 I&O- Last 24 Hours up to 6 AM 05/09/20 06:00 Intake Total 1210 ml Output Total 1125 ml Balance 85 ml Laboratory Data 24H LABS Laboratory Tests 2 05/08/20 16:55: Bedside Glucose (Misc Panel) 172H 05/08/20 20:18: Bedside Glucose (Misc Panel) 104 05/09/20 05:30: Bedside Glucose (Misc Panel) 158H 05/09/20 06:43: Nucleated Red Blood Cells % (auto) 0.0, Anion Gap 10, Glomerular Filtration Rate > 60.0, Calcium Level 8.6L, Total Bilirubin 0.6, Aspartate Amino Transf (AST/SGOT) 27, Alanine Aminotransferase (ALT/SGPT) 32, Alkaline Phosphatase 73, Total Protein 6.5, Albumin 2.9L, Albumin/Globulin Ratio 0.8 CBC/BMP Laboratory Tests 05/09/20 06:43 Microbiology Microbiology 05/06/20 Urine Culture - Final, Complete Escherichia Coli Enterococcus Faecalis GME ATTESTATION GME ATTESTATION My faculty preceptor for this patient encounter was physically present during the encounter and was fully available. All aspects of the patient interview, examination, medical decision making process, and medical care plan development were reviewed and approved by the faculty preceptor. The faculty preceptor is aware and concurs with the plan as stated in the body of this note and will attest to such by his/her cosignature. ATTENDING NOTE Pt seen and examined by me. Agree with the above assessment and plan. CHI TURNER DO May 09, 2020 12:12 ALLIE NORRIS MD May 09, 2020 15:15
[2020-05-09] MEDS: KCL 40MEQ in NS 1000ML 1,000 ML IV SCH ×2 (12:34→21:25)
[2020-05-09 14:00] VITALS: BP 142/82
--- NOTE | 2020-05-09 14:00 | REP ---
KUB: SINGLE VIEW. HISTORY: Follow bowel contrast. FINDINGS: The orally administered contrast from yesterday's small bowel follow-through study now opacifies the colon to the level of the sigmoid. The distal ileum is seen and is unremarkable. There are a few scattered left and right colonic diverticula. No dilation. Electronically Signed by Saurabh Frank MD 05/09/2020 02:05 P
[2020-05-09] MEDS ORDERED: GLUCAGON INJ 1MG VIAL SC PRN (17:45)
[2020-05-09] MEDS ORDERED: GLUCOSE 4GM CHEW TABLET PO PRN (17:45)
[2020-05-09] MEDS ORDERED: DEXTROSE 50% 50 ML SYRINGE IV PRN (17:45)
[2020-05-09] MEDS: cefTRIAXone SOD 2 GM in D5W MINI-BAG PLUS 50 ML IV SCH (20:04)
[2020-05-09] MEDS: diphenhydrAMINE 25MG CAP PO PRN (21:23)
[2020-05-09 22:00] VITALS: BP 161/83
[2020-05-10] MEDS: metroNIDAZOLE 500 MG in IV 1 EA IV SCH ×3 (03:27→20:04)
[2020-05-10] MEDS: METOCLOPRAMIDE INJ 10MG/2ML VIAL (J2765 PER 1) IV SCH ×2 (03:27→09:39)
[2020-05-10] MEDS: HEPARIN SOD (PORCINE) 5000UNITS/ML VIAL (J1644 PER 1000UNITS) SQ SCH ×3 (05:10→21:05)
[2020-05-10 06:00] VITALS: BP 160/85
[2020-05-10 06:41] LABS: HEMATOCRIT 37.2 % (42.0-52.0); HEMOGLOBIN 11.8 g/dl (13.5-17.5); MEAN CORPUSCULAR HEMOGLOBIN 31.9 pg (27.0-33.0); MEAN CORPUSCULAR HGB CONC 31.7 g/dl (32.0-36.5); MEAN CORPUSCULAR VOLUME 100.5 fl (80.0-96.0); PLATELET COUNT, AUTOMATED 477 10^3/uL (150-450); WHITE BLOOD COUNT 7.5 10^3/uL (4.0-10.0)
[2020-05-10 07:09] LABS: ALBUMIN 2.8 GM/DL (3.2-5.2); ALT/SGPT 34 U/L (12-78); BILIRUBIN,TOTAL 0.6 MG/DL (0.2-1.0); BLOOD UREA NITROGEN 14 MG/DL (7-18); CALCIUM LEVEL 8.2 MG/DL (8.8-10.2); CARBON DIOXIDE LEVEL 25 MEQ/L (21-32); CHLORIDE LEVEL 109 MEQ/L (98-107); CREATININE FOR GFR 0.77 MG/DL (0.70-1.30); GLOMERULAR FILTRATION RATE > 60.0 (>42); GLUCOSE, FASTING 171 MG/DL (70-100); POTASSIUM SERUM 3.3 MEQ/L (3.5-5.1); SODIUM LEVEL 143 MEQ/L (136-145); TOTAL PROTEIN 6.4 GM/DL (6.4-8.2)
[2020-05-10] MEDS ORDERED: HumaLOG INSULIN (NovoLOG) PER UNIT SC SCH (07:30)
--- NOTE | 2020-05-10 08:25 | IPN ---
DATE: 05/09/2020 HISTORY: Patient had presented initially with nausea and vomiting. He was found to have evidence for a urinary tract infection associated with his urostomy from a previous cystectomy. Concerns had been raised about possible gastric outlet obstruction based on a CT scan demonstrating a prominent stomach. He has had a nasogastric (NG) tube in place. Yesterday, he had a small bowel follow-through study done which showed flow of contrast into the distal small bowel by 3-1/2 hours. At this point, there was still some contrast noted within the stomach. Vital signs: Show that the patient has been afebrile over the past 24 hours. His pulse is in the 80s to mid 90s. Blood pressure is generally good. His pulse oximetry shows good saturations on 2 liters of nasal cannula oxygen. Intake and output show that yesterday he had 1200 in with 1100 out. PHYSICAL EXAM: The patient reports that he would like the have the NG tube out. He is alert and oriented. He denies any abdominal pain currently. He denies any passage of stool. He reports that his urostomy is working well. Heart exam shows a regular rate and rhythm. The lungs are clear. The abdomen is flat. He has positive bowel sounds. The abdomen shows a long widened midline scar. He has a urostomy in the right upper quadrant which appears to be draining well. The abdomen is soft and without any significant tenderness. Laboratory studies today show that his white count is 9 with a hemoglobin of 12, hematocrit of 37, and platelet count of 467,000. Chemistry profile shows a sodium of 143, potassium 3.3, chloride 108, CO2 of 25, BUN of 21, creatinine 0.9, and a glucose of 175. His LFTs are normal. I ordered a KUB for this morning, which shows that he has contrast all the way through filling his colon. There does remain a hint of contrast still in the upper abdomen presumably in the stomach, though this is cut off the side of the film. IMPRESSION: The contrast has passed nicely through the small and large bowel. His nasogastric tube is not having much output at this time. His presentation is not suggestive in my mind of a gastric outlet obstruction so much as an acute process of nausea and vomiting associated with his urinary tract infection. PLAN: The patient's NG tube will be removed, and I will start him on clear liquids. If he tolerates the liquids, his diet can be advanced as tolerated. I will defer any other care to the hospitalist who was managing the treatment of the infection. ERASMO
[2020-05-10] MEDS: DOCUSATE SOD LIQ 100MG/10ML UDC GT SCH ×2 (09:00→20:05)
[2020-05-10] MEDS: HumaLOG INSULIN (NovoLOG) PER UNIT SC SCH ×4 (09:38→21:00)
[2020-05-10] MEDS: PANTOPRAZOLE 40MG VIAL (C9113 PER 1) IV SCH (09:39)
[2020-05-10] MEDS ORDERED: POTASSIUM CHLORIDE 10 MEQ SR TABLET PO ONE (10:00)
[2020-05-10] MEDS: METOCLOPRAMIDE 5 MG TAB PO SCH ×3 (12:24→20:05)
[2020-05-10 14:00] VITALS: BP 167/95
--- NOTE | 2020-05-10 20:00 | IPNPDOC ---
Date Seen The patient was seen on 05/10/20. Progress Note SUBJECTIVE: Patient was comfortable this morning, denies any complaints including any gricelda sea. Have been on clear liquid diet. Gastric follow through study yesterday not suggestive of gastric outlet obstruction. Afebrile overnight. WBC 7.5. OBJECTIVE PHYSICAL EXAMINATION: VITAL SIGNS: Please see below. General: No acute distress, Alert Eyes: Normal sclera, EOMI HENT: Atraumatic Cardiovascular: Normal rate Pulmonary: Clear to auscultation b/l, no wheezing GI: Soft, nontender, nondistended Skin: Warm and dry Neuro: CN grossly intact. No focal deficits. Strengths equal b/l. Psych: oriented x 3 LABORATORY DATA, IMAGING STUDIES, MICROBIOLOGY: Please see below. DVT prophylaxis ordered?: ASSESSMENT AND PLAN: 1. Nausea and vomiting 2/2 ileus vs. gastric outlet syndrome - likely ileus. Less likely gastric outlet obstruction. - SB follow through study shows contrast into distal small bowel. - General surgery following. NG tube had been discontinued and diet is re-initiated. - Nausea is resolved as of this morning. continue to advance diet. 2. HTN - BP elevated. - resume meds if can tolerate PO. amlodipine, losartan and metoprolol. 3. DM - FS ACHS with sliding scale. 4. UTI - Urine culture + e.coli and enterococcus on Rocephin. Disposition: likely d/c in next 24-48 hours if patient can tolerate PO intake. DISPOSITION: . VS, [facility]&O, [facility] Vital Signs/I&O Vital Signs Date Time Temp Pulse Resp B/P (MAP) Pulse Ox O2 Delivery O2 Flow Rate FiO2 05/10/20 14:00 97.5 104 18 167/95 (119) 97 Room Air 05/08/20 22:00 2.0 I&O- Last 24 Hours up to 6 AM 05/10/20 06:00 Intake Total 4420 ml Output Total 2625 ml Balance 1795 ml Laboratory Data 24H LABS Laboratory Tests 2 05/09/20 21:25: Bedside Glucose (Misc Panel) 109 05/10/20 06:03: Nucleated Red Blood Cells % (auto) 0.0, Anion Gap 9, Glomerular Filtration Rate > 60.0, Calcium Level 8.2L, Total Bilirubin 0.6, Aspartate Amino Transf (AST/SGOT) 35, Alanine Aminotransferase (ALT/SGPT) 34, Alkaline Phosphatase 86, Total Protein 6.4, Albumin 2.8L, Albumin/Globulin Ratio 0.8 05/10/20 11:30: Bedside Glucose (Misc Panel) 188H CBC/BMP Laboratory Tests 05/10/20 06:03 Microbiology Microbiology 05/06/20 Urine Culture - Final, Complete Escherichia Coli Enterococcus Faecalis MADHURI THAKKAR MD May 10, 2020 20:00
[2020-05-10] MEDS: cefTRIAXone SOD 2 GM in D5W MINI-BAG PLUS 50 ML IV SCH (20:04)
[2020-05-10] MEDS: diphenhydrAMINE 25MG CAP PO PRN (20:18)
[2020-05-10] MEDS: LOSARTAN 25 MG TAB PO SCH (20:18)
[2020-05-10] MEDS: amLODIPine 10 MG TAB PO SCH (20:19)
[2020-05-10 22:00] VITALS: BP 143/86
[2020-05-11] MEDS: metroNIDAZOLE 500 MG in IV 1 EA IV SCH ×2 (04:32→12:51)
[2020-05-11] MEDS: HEPARIN SOD (PORCINE) 5000UNITS/ML VIAL (J1644 PER 1000UNITS) SQ SCH ×2 (05:21→14:10)
[2020-05-11 06:00] VITALS: BP 177/101
[2020-05-11 06:06] LABS: HEMATOCRIT 40.3 % (42.0-52.0); MEAN CORPUSCULAR HEMOGLOBIN 32.3 pg (27.0-33.0); MEAN CORPUSCULAR HGB CONC 32.3 g/dl (32.0-36.5); PLATELET COUNT, AUTOMATED 531 10^3/uL (150-450); RED BLOOD COUNT 4.03 10^6/uL (4.30-6.10); WHITE BLOOD COUNT 8.6 10^3/uL (4.0-10.0)
--- NOTE | 2020-05-11 07:05 | IPN ---
DATE: 05/10/2020 HISTORY: Patient was admitted with a urinary tract infection with associated nausea and vomiting. His nasogastric (NG) tube was discontinued yesterday, and he was started on clear liquids. He has tolerated these well without any nausea or vomiting. He has had two bowel movements yesterday and reports he is passing some flatus. He reports having had a little bit of reflux or heartburn, but this has not been persistent. VITAL SIGNS: Show that he has been afebrile over the past 24 hours with a pulse varying between the upper 70s and the mid 90s. His blood pressure has been borderline elevated. INTAKE AND OUTPUT: Shows that yesterday he had 3900 recorded in with 2800 recorded out. PHYSICAL EXAMINATION: Patient is alert and oriented and appears comfortable. The abdomen is mildly obese but soft and nontender. LABORATORY STUDIES: Today, show a white count of 8, hemoglobin 12, hematocrit 37, and a platelet count of 477,000. Chemistry profile shows sodium 143, potassium 3.3, chloride 109, CO2 of 25, BUN of 14, creatinine 0.8, and a glucose of 171. IMPRESSION: Patient has tolerated clear liquids well without any apparent difficulty. I do not believe there is any strong evidence for gastric outlet obstruction. It may be that he has some mild delay in gastric emptying based on his history of diabetes. PLAN: Patient will be advanced to a regular diet. He was advised to go slow at first and take small meals and ensure that this is going well before he takes truly unlimited intake. I do not believe he is going to have any problems. He can be discharged whenever his medical issues are stable. ERASMO
[2020-05-11 08:06] LABS: BLOOD UREA NITROGEN 14 MG/DL (7-18); CALCIUM LEVEL 8.8 MG/DL (8.8-10.2); CARBON DIOXIDE LEVEL 24 MEQ/L (21-32); CHLORIDE LEVEL 108 MEQ/L (98-107); CREATININE FOR GFR 0.88 MG/DL (0.70-1.30); GLOMERULAR FILTRATION RATE > 60.0 (>42); GLUCOSE, FASTING 208 MG/DL (70-100); POTASSIUM SERUM 3.3 MEQ/L (3.5-5.1); SODIUM LEVEL 143 MEQ/L (136-145)
[2020-05-11] MEDS ORDERED: METOPROLOL TARTRATE 100 MG TAB PO SCH (09:00)
[2020-05-11] MEDS ORDERED: PANTOPRAZOLE 40MG TAB (PROTONIX) PO SCH (09:00)
[2020-05-11] MEDS: METOCLOPRAMIDE 5 MG TAB PO SCH ×2 (10:29→12:58)
[2020-05-11 10:30] VITALS: BP 167/101
[2020-05-11] MEDS: HumaLOG INSULIN (NovoLOG) PER UNIT SC SCH ×2 (10:30→12:58)
[2020-05-11] MEDS: LOSARTAN 25 MG TAB PO SCH (10:30)
[2020-05-11] MEDS: DOCUSATE SOD LIQ 100MG/10ML UDC GT SCH (10:31)
[2020-05-11] MEDS: amLODIPine 10 MG TAB PO SCH (10:31)
[2020-05-11] MEDS ORDERED: POTASSIUM CHLORIDE 10 MEQ SR TABLET PO ONE (11:00)
--- NOTE | 2020-05-11 11:30 | IPN ---
DATE: 05/11/2020 The patient has been having some bowel movements. Yesterday, he had some more bowel movements and overall tolerating some clears, although drank a significant amount of fluids yesterday and felt rather full with those fluids. Has had some mild nausea last night and today. I started him on 10 mg of Reglan and he was dropped down to 5 mg before food and at bedtime. We will see if that makes any difference with his gastric emptying issues. His white count has been normal for the last 3 days and his hematocrit is coming up nicely. His abdomen is mildly distended throughout but no significant peritoneal signs are appreciated. IMPRESSION/PLAN: The patient has evidence of probably some gastric emptying issues that are longstanding I anticipate with some exacerbation. From my standpoint, I do feel that if he does well with food today he can be evaluated as an outpatient with gastric emptying studies as well as with a possible upper endoscopy. I recommend a GI consultation for further evaluation of his upper gastrointestinal tract at some point in the near future. Obviously if he does not tolerate his progression of diet, the concern is that he may need an intervention. Right now we are not truly seeing adhesions as his primary diagnosis for this and thus, may need an endoscopy as an inpatient prior to further surgical intervention. I would recommend GI consultation if we proceed that way.
[2020-05-11 14:00] VITALS: BP 163/99
[2020-05-11] MEDS ORDERED: LEVO750T13 PO (15:28)
[2020-05-11] MEDS ORDERED: METO5TAB2 PO (15:28)
--- NOTE | 2020-05-11 18:53 | DS.PDOC ---
Discharge Summary General Date of Admission May 06, 2020 at 18:38 Date of Discharge 05/11/20 Attending Physician: MADHURI THAKKAR MD Specialist/Consultants Involve: Higinio Tan Jr Discharge Summary PROCEDURES PERFORMED DURING STAY: [None]. ADMITTING DIAGNOSES: 1. Nausea and Vomiting 2/2 Gastric outlet obstruction vs ileus 2. HTN 3. DMII 4. Ulcerative Colitis 5. UTI DISCHARGE DIAGNOSES: 1. Ileus 2. HTN 3. DMII 4. Ulcerative Colitis 5. UTI COMPLICATIONS/CHIEF COMPLAINT: Gastric Outlet Obstruction. HISTORY OF PRESENT ILLNESS: Patient is a 75 year old male with a past medical history significant for bladder cancer s/p chemotherapy in 2017 and cystectomy with diverting urostomy in 2018, prostate cancer s/p prostatectomy, ulcerative colitis on remicade infusions, and ASCVD with history of RCA stent who presented to the [facility] ER with complaint of nausea and vomiting for 1 week duration. Patient stated that about 1 week ago he had developed nausea and vomiting. He states that he also had some constipation. At first he went to Urgent Care where he received medication for his constipation. He stated that yesterday he had multiple bowel movements. He denied any bloody bowel movement. He denies any abdominal pain. This morning he states that he continued to develop nausea and vomiting as well as decreased appetite. He has been unable to tolerate any PO intake. He subsequently presented to the ED. In the ED the patient was vitally stable. He was hypertensive on presentation. He had a mild leukocytosis. CT imaging of the abdomen and pelvis was obtained which demonstrated distended stomach and possible gastric outlet obstruction. Surgery was contacted through the ER with recommendations for medical management. Hospitalist service was consulted HOSPITAL COURSE: During the patients hospitalization he was started on IV antibiotics for treatment of a urinary tract infection. In regards to his ileus. He was kept NPO with NG tube placed. The patient was seen and followed by General Surgery throughout his hospitalization. He received an upper GI series with small bowel follow-through which demonstrated mild gastric distention and large amount of contrast material remaining in the stomach after greater than 3 hours. It was felt that the patient could possibly have delayed gastric emptying from gastroparesis from his diabetes. He was started on Reglan. The patient did start to pass gas in the subsequent days. His diet was advanced and he had bowel movements. The patients NG tube was removed and his diet was advanced further. He tolerated his diet and was subsequently discharged. He was recommended to follow-up with Gastroenterology for possible endoscopy and gastric emptying studies given his probably gastroparesis. He was discharged on reglan. DISCHARGE MEDICATIONS: Please see below. ALLERGIES: Please see below. PHYSICAL EXAMINATION ON DISCHARGE: VITAL SIGNS: Please see below. GENERAL APPEARANCE: Awake, alert, and oriented. Appears in no acute distress. Sitting up comfortably in chair HEENT: Atraumatic, normocephalic. Eyes are nonicteric. Trachea is midline CARDIOVASCULAR: normal S1, S2. Regular rate and rhythm. No clicks, rubs, or murmurs LUNGS: Clear vesicular breath sounds bilaterally. Good respiratory effort. No wheezes, rhonchi, or rales. Symmetric chest expansion. ABDOMEN: Soft, slightly distended. Nontender. Normoactive bowel sounds. Urostomy bag in place with clear appearing urine. EXTREMITIES: No edema. Full and equal pulses in bilateral upper and lower extremities NEUROLOGICAL: No focal neurological deficits PSYCHIATRIC: Mood and affect appear appropriate LABORATORY DATA: Please see below. IMAGING: PORTABLE CHEST X-RAY: Single view. HISTORY: Post NG tube placement. FINDINGS: The nasogastric tube has been passed and is seen in the left upper quadrant. Diffuse interstitial changes are seen in the lung bauer consistent with fibrosis. Pleural angles are sharp. No definite infiltrate is seen. Heart is not enlarged. The aorta is calcific and somewhat tortuous. IMPRESSION: NG tube appears in good position. Evidence of COPD. Electronically Signed by Saurabh Frank MD 05/07/2020 09:30 A DD: Saurabh Frank MD 05/07/20 0820 DT: LYUBOV 05/07/20 0834 DS: ALISHA 05/07/2030 05/07/20 0930 [~ rep ct labl] CT Abdomen: 1. MASSAVE CONTANT FILLED STOMACH . CAN NOT R\O PARTIAL GASTRIC OUTLET OBSTRUCTION 2.B\L HYDRONEPHROSIS W\ILEAL DIVERSION. 3. MILD CARLY. DIL. 4. NO FREE FLUID OR AIR 5. S\P CYSTECTOMY UPPER GI SINGLE CONTRAST AND SMALL BOWEL FOLLOW-THROUGH The procedure was performed under the direct supervision of Dr. Farnk. The images were reviewed with Dr. Frank. The lime hide inspector film shows no organomegaly or pathological masses. The intestinal gas pattern is nonspecific. There are lumbar fixation screws in place. There are multiple surgical clips in the pelvis. Liquid barium was administered through the NG tube. There is mild gastric distension. The stomach is grossly normal. There is mild deformity of the post bulbar duodenum with spasm. Some contrast does advance into the remainder of the small bowel. At the three hour and 35-minute film there is contrast seen in the distal ileum. At this time there is still a large amount of contrast in the stomach. Impression: There is mild gastric distension. There is mild deformity in the post bulbar duodenum spasm. Some contrast does advance into the remainder of the small bowel. At the three our and 35-minute film there is still a large amount of contrast in the stomach. 3 minutes of fluoroscopy time was utilized for this procedure. Electronically Signed by JIMMY Head 05/08/2020 05:25 P Electronically Signed by Saurabh Frank MD 05/08/2020 05:40 P KUB: SINGLE VIEW. HISTORY: Follow bowel contrast. FINDINGS: The orally administered contrast from yesterday's small bowel follow-through study now opacifies the colon to the level of the sigmoid. The distal ileum is seen and is unremarkable. There are a few scattered left and right colonic diverticula. No dilation. Electronically Signed by Saurabh Frank MD 05/09/2020 02:05 P PROGNOSIS: Fair ACTIVITY: [As tolerated]. DIET: as tolerated DISCHARGE PLAN: Patient is to be discharged home. He is to follow-up with PCP in 7-10 days. He is to be referred to GI in [place] for consideration of possible endoscopy and evaluation for gastroparesis. Additionally patient has ulcerative colitis for which he is managed in [place] where he resides for most of the year. He is to continue antibiotics to completion for his UTI DISPOSITION: 01 Home, Self-Care. DISCHARGE CONDITION: [Stable]. TIME SPENT ON DISCHARGE: 40 minutes. Vital Signs/I&Os Vital Signs Date Time Temp Pulse Resp B/P (MAP) Pulse Ox O2 Delivery O2 Flow Rate FiO2 05/11/20 14:00 97.1 87 22 163/99 (120) 90 Room Air 05/08/20 22:00 2.0 I&O- Last 24 Hours up to 6 AM 05/11/20 06:00 Intake Total 1485 ml Output Total 975 ml Balance 510 ml Laboratory Data Labs 24H Laboratory Tests 2 05/10/20 21:12: Bedside Glucose (Misc Panel) 143H 05/11/20 05:40: Anion Gap 11, Glomerular Filtration Rate > 60.0, Calcium Level 8.8 05/11/20 05:42: Nucleated Red Blood Cells % (auto) 0.0 05/11/20 11:49: Bedside Glucose (Misc Panel) 227H CBC/BMP Laboratory Tests 05/11/20 05:40 05/11/20 05:42 FSBS Laboratory Tests Test 05/10/20 21:12 05/11/20 11:49 Range/Units Bedside Glucose (Misc Panel) 143 227 83-110 MG/DL Microbiology Microbiology 05/06/20 Urine Culture - Final, Complete Escherichia Coli Enterococcus Faecalis Discharge Medications Scheduled Amlodipine Besylate (Amlodipine Besylate) 10 Mg Tab, 10 MG PO DAILY, (Reported) Atorvastatin Calcium (Atorvastatin Calcium) 80 Mg Tablet, 40 MG PO DAILY, (Reported) Glipizide (Glipizide) 5 Mg Tab, 5 MG PO BIDWM, (Reported) Hydrochlorothiazide (Hydrochlorothiazide) 25 Mg Tab, 25 MG PO DAILY, (Reported) Hydroxychloroquine Sulfate (Hydroxychloroquine Sulfate) 200 Mg Tablet, 200 MG PO QHS, (Reported) Hydroxyurea (Hydroxyurea) 500 Mg Capsule, 500 MG PO 2XW, (Reported) SAT, SUN Hydroxyurea (Hydroxyurea) 500 Mg Capsule, 1,000 MG PO 5XW, (Reported) MON-MON Insulin Glargine (Lantus) 100 Unit/1 Ml Vial, 38 UNIT INJ QHS, (Reported) Insulin Human Lispro (Humalog) 100 Unit/1 Ml Vial, Unknown Dose SC BID, (Reported) SLIDING SCALE Isosorbide Mononitrate (Isosorbide Mononitrate Er) 30 Mg Tab, 30 MG OR DAILY, (Reported) Levofloxacin (Levofloxacin) 750 Mg Tablet, 750 MG PO DAILY Losartan Potassium (Losartan Potassium) 50 Mg Tablet, 25 MG PO DAILY, (Reported) Mesalamine (Apriso) 0.375 Gm Cap.er.24h, 750 MG PO BID, (Reported) Metoclopramide HCl (Metoclopramide HCl) 5 Mg Tablet, 5 MG PO ACHS Metoprolol Tartrate (Lopressor) 100 Mg Tab, 100 MG OR BID, (Reported) Vits A,C,E/Lutein/Minerals (Ocuvite with Lutein Tablet) 1 Tab Tab, 1 TAB PO BID, (Reported) Scheduled PRN Acetaminophen (Acetaminophen) 500 Mg Tablet, 1,000 MG PO Q6H PRN for HEADACHE, (Reported) Allergies Coded Allergies: No Known Allergies (Unverified , 05/06/20) ATTENDING NOTE I have personally evaluated and examined the patient. Discussed with resident/student regarding plan of care and agree with the above assessment and plan. CHI TURNER DO May 11, 2020 18:53 MADHURI THAKKAR MD May 12, 2020 18:31
--- NOTE | 2020-05-13 10:59 | REP ---
CT ABDOMEN PELVIS WITH IV BUT WITHOUT ORAL CONTRAST: HISTORY: Abdomen pain and vomiting. Preliminary report is provided at the time of exam by Dr. Huang. Final report is withheld pending retrieval of outside prior studies. This prior exam was received and is dated February 25, 2020. CT CONTRAST DOSE: 100 mL of intravenous Isovue [address] FINDINGS: Preliminary digital staff registered nurse radiograph demonstrates surgical clips in the pelvis and lumbosacral spine fusion hardware. Bowel gas pattern is unremarkable on staff registered nurse image. The lung bases are essentially clear. There is some air in the distal esophagus. Axial CT images demonstrate marked fluid and a gaseous distension of the stomach. This is unchanged from the comparison study and is suggestive of gastric outlet obstruction. The duodenal C-loop does not appear compressed although it is not dilated. No pancreatic abnormality is observed. No abnormality is observed in the gallbladder. Normal adrenal glands are seen. No focal liver mass lesion is seen. There are two tiny hepatic cysts in the left lobe. The spleen is unremarkable. There is mild bilateral hydronephrosis again noted in this patient who is status post cystectomy and urinary tract ileal diversion ileostomy. There is diastases of the rectus abdominis muscles with broad ventral hernia. This is unchanged. No small or large bowel dilation is seen. Left colonic diverticulosis is noted. Postoperative changes are seen along the anterior abdominal wall. The prostate and seminal vesicles are surgically absent as well as the cystectomy. No pelvic mass or adenopathy is appreciated. There is mild ectasia of the infrarenal abdominal aorta, and 0.6 cm. IMPRESSION: There is marked gastric distension question gastric outlet obstruction. Left colonic diverticulosis. Postoperative changes in the abdomen. Right lower quadrant ileostomy urinary diversion. The urinary bladder, prostate and seminal vesicles are surgically absent. There is bilateral pars interarticularis defect and L5 with fused L5-S1 spondylolisthesis. Electronically Signed by Saurabh Frank MD 05/13/2020 02:56 P
== END 2020-05-11 16:08 | disposition home or self-care (01) | DRG 389 ==
LOC: M ED 11:13 → M ED INP 18:38 → ENRESERV 18:49 → M MSPAV 21:57
PROVIDERS: ADMIT Internal Medicine; ATTEND Student in an Organized Health Care Education/Training Program
DX: K56.7 Ileus, unspecified (principal); K51.90 Ulcerative colitis, unspecified, without complications; N13.30 Unspecified hydronephrosis; K31.1 Adult hypertrophic pyloric stenosis; N39.0 Urinary tract infection, site not specified; Z85.51 Personal history of malignant neoplasm of bladder; Z85.46 Personal history of malignant neoplasm of prostate; E11.43 Type 2 diabetes mellitus with diabetic autonomic (poly)neuropathy; I10 Essential (primary) hypertension; Z87.891 Personal history of nicotine dependence; I25.10 Atherosclerotic heart disease of native coronary artery without angina pectoris; Z95.5 Presence of coronary angioplasty implant and graft; Z93.6 Other artificial openings of urinary tract status; Z79.4 Long term (current) use of insulin; Z79.899 Other long term (current) drug therapy; K31.84 Gastroparesis; G47.00 Insomnia, unspecified; B96.20 Unspecified Escherichia coli [E. coli] as the cause of diseases classified elsewhere; B95.2 Enterococcus as the cause of diseases classified elsewhere

== ENCOUNTER 2020-05-18 13:43 | Inpatient (IN) | payer MEDICARE ==
[~2020-05-18] VITALS: Ht 172.7 cm; Wt 100.5 kg
[~2020-05-18 13:43] MED LIST changes: +ACET-683 PO; +APRI0.37 PO; +ATOR80TA59 PO; +HYDR200T3 PO; +HYDR500C3 PO; +INSU100I12 SQ; +INSUHUMDS SC; +INSULADS INJ; +LEVO750T13 PO; +LOSA25TA14 PO; +LOSA50TA88 PO; +METO5TAB2 PO
[2020-05-18 14:38] LABS: BASO % 0.2 % (0.0-1.0); EOS # 0.1 10^3/uL (0.0-0.5); EOS % 0.5 % (0.0-3.0); HEMATOCRIT 41.9 % (42.0-52.0); HEMOGLOBIN 13.7 g/dl (13.5-17.5); LYMPH # 1.2 10^3/uL (1.5-5.0); LYMPH % 9.4 % (24.0-44.0); MEAN CORPUSCULAR HEMOGLOBIN 32.2 pg (27.0-33.0); MEAN CORPUSCULAR HGB CONC 32.7 g/dl (32.0-36.5); MEAN CORPUSCULAR VOLUME 98.4 fl (80.0-96.0); MONO # 1.5 10^3/uL (0.0-0.8); MONO % 11.4 % (0.0-5.0); NEUTROPHILS % 77.9 % (36.0-66.0); PLATELET COUNT, AUTOMATED 493 10^3/uL (150-450); RED BLOOD COUNT 4.26 10^6/uL (4.30-6.10); WHITE BLOOD COUNT 12.9 10^3/uL (4.0-10.0)
--- NOTE | 2020-05-18 14:38 | REP ---
Clinical: Abdominal pain. Technique: Upright view of the chest with supine and upright views of the abdomen and pelvis. Findings: Frontal view of the chest demonstrates chronic fibrosis and emphysematous disease. No free air below diaphragm to suspect pneumoperitoneum. Supine and upright views of the abdomen and pelvis demonstrate relatively nonspecific bowel gas pattern. Postsurgical changes noted. Impression: Nonspecific bowel gas pattern. Electronically Signed by Marco Laws MD 05/18/2020 02:30 P
[2020-05-18] MEDS: NS 1,000 ML IV SCH (14:44)
[2020-05-18 15:02] LABS: ALBUMIN 3.4 GM/DL (3.2-5.2); BILIRUBIN,DIRECT 0.3 MG/DL (0.0-0.2); BILIRUBIN,TOTAL 0.9 MG/DL (0.2-1.0); TOTAL PROTEIN 7.7 GM/DL (6.4-8.2)
[2020-05-18] MEDS ORDERED: METOCLOPRAMIDE INJ 10MG/2ML VIAL (J2765 PER 1) IV ONE (15:15)
--- NOTE | 2020-05-18 16:25 | REP ---
CT ABDOMEN AND PELVIS WITHOUT IV OR ORAL CONTRAST: HISTORY: Abdomen pain and distension. Vomiting. Comparison is made with today's abdominal series. Comparison CT study is from May 06, 2020. CT FINDINGS: There is recurrent massive dilation of the stomach, consistent with gastric outlet obstruction. Stomach is dilated to the level of the duodenal bulb. The C-loop is not dilated. Jejunal and ileal loops are normal in caliber. The colon is not dilated. There is a post cystectomy ileal diversion enterostomy in the right abdomen and mild right-sided hydronephrosis is present, similar to the prior study. There is no evidence of free intraperitoneal air. IMPRESSION: Recurrent massive gastric distension with ingested material and fluid. Gastric outlet obstruction pattern. No evidence of free air. Right-sided hydronephrosis associated with ileal diversion enterostomy. Postop changes in the abdomen and lumbar spine. Electronically Signed by Saurabh Frank MD 05/18/2020 05:11 P
[2020-05-18] MEDS ORDERED: GLUCOSE 4GM CHEW TABLET PO PRN (17:30)
[2020-05-18] MEDS ORDERED: DEXTROSE 50% 50 ML SYRINGE IV PRN (17:30)
[2020-05-18] MEDS ORDERED: GLUCAGON INJ 1MG VIAL SC PRN (17:30)
[2020-05-18] MEDS ORDERED: HYDR25TAB PO (17:59)
[2020-05-18] MEDS ORDERED: ECOT81TA5 PO (17:59)
[2020-05-18] MEDS ORDERED: EQL50TAB2 PO (17:59)
[2020-05-18] MEDS ORDERED: OMEG10002 PO (17:59)
[2020-05-18] MEDS ORDERED: ISOS30TA4 PO (17:59)
[2020-05-18] MEDS ORDERED: VITAD1000T PO (17:59)
[2020-05-18] MEDS ORDERED: CALC500T25 PO (17:59)
[2020-05-18] MEDS ORDERED: METO100T5 PO (17:59)
--- NOTE | 2020-05-18 18:13 | HPEPDOC ---
[facility] Medical History & Physical Date of Admission May 18, 2020 Date of Service: May 18, 2020 Attending Physician: MARCO A TUTTLE MD History and Physical CHIEF COMPLAINT: Abdominal pain HPI: 75 year old M with a pertinent medical history of bladder cancer s/p chemotherapy in 2017 and cystectomy with diverting urostomy in 2018, prostate cancer s/p prostatectomy, ulcerative colitis, and CAD with history of RCA stent, who was recently admitted on 05/06- 05/11 for gastric outlet obstruction ultimately presumed 2/2 gastroparesis and was discharged on reglan with plan for GI outpatient follow up. Briefly during the recent admission, he was treated for an E.coli and E.fecalis UTI with ceftriaxone, and with regard to the gastric outlet obstruction, he was kept NPO with an NG tube, was followed by general surgery, had an upper GI series with small bowel follow-through which demonstrated mild gastric distention and large amount of contrast material remaining in the stomach after greater than 3 hours and conclusion was made that the delayed gastric emptying was likely 2/2 gastroparesis from his diabetes. He was started on Reglan. His exam slowly improved with slow PO introduction and bowel movement and he was discharged home with PRN reglan and plan for outpatient referral to gastroenterology for possible endoscopy and gastric emptying studies. He returns today with abdominal pain and severe distention with N/V for the last 2 days. In the ED, he was HDS and afebrile reporting feeling nauseous. Given the degree of distention and CT A/P showing likely gastric outlet obstruction, Dr. Schroeder was consulted who placed an NGT and will be officially consulted as he is admitted to medicine for likely EGD. On placement of NGT there was 1600cc out of nonbloody gastric contents. The rest of the work up noted WBC 12.9, hgb 13.7, platelets 493, lipase and LFTs wnl, na 136, K 3.6 BUN 27, Cr 2.3. PAST MEDICAL HISTORY: 1. Bladder Cancer in 2017 s/p cystectomy and diverting urostomy 2. Prostatic Cancer s/p Prostatectomy 3. CAD s/p RCA stent in 1998 4. Diabetes Mellitus Type 2 5. Bilateral Carpal Tunnel 6. Hypertension 7. Ulcerative Colitis PAST SURGICAL HISTORY: 1. Cystectomy with Diverting urostomy 2. Prostatectomy 2/2 Prostatic Cancer 3. Carpal Tunnel Release SOCIAL HISTORY: Patient is and lives at home with his . Spends [place] in [place] and his [place] in [place]. He is a former smoker. He started when he was 18 and smoked about 2 ppd until 1995. He was a heavy drinker in the past but quit in 1998. He denies any IV or illicit drug use FAMILY HISTORY: Family history is positive for HTN and CAD ALLERGIES: Please see below. REVIEW OF SYSTEMS: CONSTITUTIONAL: Denies fevers, chills. Denies unintentional weight loss or weight gain HEENT: Denies changes in vision. Denies difficulty swallowing CARDIOVASCULAR: Denies chest pain. denies palpitations RESPIRATORY: Denies shortness of breath. Denies cough GASTROINTESTINAL: Endorses nausea, vomiting, constipation, abdominal pain and distention. Denies bloody stools or emesis. GENITOURINARY: Denies changes in urostomy output SKIN: Denies rashes or lesions MUSCULOSKELETAL: Denies muscle weakness NEUROLOGICAL: Denies changes in gait or speech PSYCHIATRIC: Denies depression or anxiety ENDOCRINE: Denies heat intolerance or cold intolerance HEMATOLOGIC/LYMPHATIC: Denies easy bruising or bleeding. PHYSICAL EXAMINATION: VITAL SIGNS: HDS, afebrile, see below for details GENERAL APPEARANCE: Awake, alert, and oriented. Mild distress. NGT in place HEENT: NCAT, PERRLA, EOMI, anicteric, NGT in place, MMM CARDIOVASCULAR: RRR, no mrg LUNGS: CTAB, no rales, rhonchi or wheezing ABDOMEN: Hyperactive bowel sounds, distended, mild tenderness throughout, no r ebound or guarding. Urostomy bag in place with clear appearing urine. EXTREMITIES: No LE edema, WWP, 2+ DP pulses NEUROLOGICAL: CN2-12 intact, speech clear without dysarthria, moving all extremities PSYCHIATRIC: Aox3 LABORATORY DATA: See below. summarized above IMAGING: summarized above ASSESSMENT: 75 year old M with a history of UC who was recently admitted with gastric outlet obstruction and ultimately diagnosed with likely gastroparesis who returns with the same presentation with moderate/severe abdominal distention, nausea and emesis with decompression achieved by placement of NGT and imaging suggestive of gastric outlet obstruction. PLAN: 1. Nausea and Vomiting 2/2 Gastric Outlet Obstruction vs ileus -Patient presenting with stomach distension -NG tube has been placed with successful decompression. -Patient noted improvement in nausea and vomiting s/p NG tube placement. -ED contacted Dr. Schroeder who recommended medical management for now and will be road consultant for scoping -NPO -Will give empiric antibiotic coverage with cipro/flagyl 2. HTN -Currently normotensive. -NPO will resume meds once tolerating PO 3. DMII -Finger Sticks q6H due to NPO status, SSI Q6H, hypoglycemia protocol 4. Ulcerative Colitis -Hold maintenance medication while NPO 5. UTI: continues to have +UA s/p recent abx for E.coli and E.fecalis -Is being placed on cipro/flagyl or GI but will also cover the above bacteria 6. DVT Prophylaxis -TEDs/sequentials/heparin dispo: medsurg Vital Signs Vital Signs Date Time Temp Pulse Resp B/P (MAP) Pulse Ox O2 Delivery O2 Flow Rate FiO2 05/18/20 14:30 131/77 (95) 05/18/20 14:28 90 95 05/18/20 13:44 98.2 16 Room Air Laboratory Data Labs 24H Laboratory Tests 2 05/18/20 14:23: Immature Granulocyte % (Auto) 0.6, Neutrophils (%) (Auto) 77.9H, Lymphocytes (%) (Auto) 9.4L, Monocytes (%) (Auto) 11.4H, Eosinophils (%) (Auto) 0.5, Basophils (%) (Auto) 0.2, Neutrophils # (Auto) 10.0H, Lymphocytes # (Auto) 1.2L, Monocytes # (Auto) 1.5H, Eosinophils # (Auto) 0.1, Basophils # (Auto) 0.0, Nucleated Red Blood Cells % (auto) 0.0, Total Bilirubin 0.9, Direct Bilirubin 0.3H, Aspartate Amino Transf (AST/SGOT) 28, Alanine Aminotransferase (ALT/SGPT) 37, Alkaline Phosphatase 261H, Total Protein 7.7, Albumin 3.4, Albumin/Globulin Ratio 0.8, Lipase 284 05/18/20 14:32: POC Glucose (Misc Panel) 192H, POC Sodium (Misc Panel) 136, POC Potassium (Misc Panel) 3.6, POC Chloride (Misc Panel) 93L, POC Total CO2 (Misc Panel) 28.0H, POC Blood Urea Nitrogen (Misc Panel 27H, POC Ionized Calcium (Misc Panel) 4.4L, POC Creatinine (Misc Panel) 2.3H, POC Hematocrit (Misc Panel) 43.0 CBC/BMP Laboratory Tests 05/18/20 14:23 Home Medications Scheduled Amlodipine Besylate (Amlodipine Besylate) 10 Mg Tab, 10 MG PO DAILY Aspirin (Ecotrin) 81 Mg Tablet.dr, 81 MG PO DAILY Atorvastatin Calcium (Atorvastatin Calcium) 80 Mg Tablet, 40 MG PO DAILY Calcium Carbonate/Vitamin D3 (Calcium 500-Vit D3 400 Tablet) 1 Each Tablet, 1 TAB PO BID Cholecalciferol (Vitamin D3) (Vitamin D3) 1,000 Unit Tablet, 1,000 UNITS PO DAILY Glipizide (Glipizide) 5 Mg Tab, 5 MG PO BIDWM Hydrochlorothiazide (Hydrochlorothiazide) 25 Mg Tablet, 25 MG PO DAILY Hydroxychloroquine Sulfate (Hydroxychloroquine Sulfate) 200 Mg Tablet, 200 MG PO QHS Hydroxyurea (Hydroxyurea) 500 Mg Capsule, 500 MG PO 2XW SAT, SUN Hydroxyurea (Hydroxyurea) 500 Mg Capsule, 1,000 MG PO 5XW MON-FRI Insulin Glargine (Lantus) 100 Unit/1 Ml Vial, 38 UNIT INJ QHS Insulin Human Lispro (Humalog) 100 Unit/1 Ml Vial, Unknown Dose SC BID SLIDING SCALE Isosorbide Mononitrate (Isosorbide Mononitrate ER) 30 Mg Tab.er.24h, 30 MG PO DAILY Losartan Potassium (Losartan Potassium) 50 Mg Tablet, 25 MG PO DAILY Mesalamine (Apriso) 0.375 Gm Cap.er.24h, 750 MG PO BID Metoprolol Tartrate (Metoprolol Tartrate) 100 Mg Tablet, 100 MG PO BID [place]-3/Dha/Epa/Fish Oil (Fish Oil 1,000 mg Softgel) 1 Each Capsule, 2 CAP PO BID Vitamin B Complex (Vitamin B Complex) 1 Each Tablet, 1 TAB PO DAILY Vits A,C,E/Lutein/Minerals (Ocuvite with Lutein Tablet) 1 Tab Tab, 1 TAB PO BID Scheduled PRN Acetaminophen (Acetaminophen) 500 Mg Tablet, 1,000 MG PO Q6H PRN for HEADACHE Allergies Coded Allergies: No Known Allergies (Unverified , 05/06/20) A-FIB/CHADSVASC A-FIB History Current/History of A-Fib/PAF?: No Current PO Anticoag Therapy: No Age/Risk Factor Scoring CHADSVASC: CHADSVASC Response (Comments) Value Age Risk Factor Age >/= 75 years old 2 Gender Risk Factor Male 0 Hx of CHF No 0 Hx of HTN Yes 1 Hx of Stroke/TIA/or VTE No 0 Hx of Diabetes Yes 1 Hx of Vascular Disease Yes 1 Total 5 Treatment Treatment ordered: NONE Reason Anticoagulant not given: Not indicated/[id number] MARCO A TUTTLE MD May 18, 2020 17:01
[2020-05-18] MEDS: CIPROFLOXACIN 400 MG in IV 1 EA IV SCH (19:22)
[2020-05-18] MEDS: HumaLOG INSULIN (NovoLOG) PER UNIT SC SCH (19:23)
[2020-05-18] MEDS: metroNIDAZOLE 500 MG in IV 1 EA IV SCH (20:42)
[2020-05-18] MEDS ORDERED: METOCLOPRAMIDE INJ 10MG/2ML VIAL (J2765 PER 1) IV PRN (21:00)
[2020-05-18 21:50] VITALS: BP 131/77
[2020-05-18] MEDS: HEPARIN SOD (PORCINE) 5000UNITS/ML VIAL (J1644 PER 1000UNITS) SC SCH (22:23)
[2020-05-19] MEDS: HumaLOG INSULIN (NovoLOG) PER UNIT SC SCH ×5 (00:36→23:45)
[2020-05-19] MEDS: NS 1,000 ML IV SCH ×2 (01:54→10:45)
[2020-05-19 04:00] VITALS: BP 139/75
[2020-05-19] MEDS: metroNIDAZOLE 500 MG in IV 1 EA IV SCH ×2 (04:38→12:00)
[2020-05-19 05:09] LABS: HEMATOCRIT 37.9 % (42.0-52.0); HEMOGLOBIN 12.4 g/dl (13.5-17.5); MEAN CORPUSCULAR HEMOGLOBIN 32.6 pg (27.0-33.0); MEAN CORPUSCULAR HGB CONC 32.7 g/dl (32.0-36.5); MEAN CORPUSCULAR VOLUME 99.7 fl (80.0-96.0); PLATELET COUNT, AUTOMATED 395 10^3/uL (150-450)
[2020-05-19 05:30] LABS: BLOOD UREA NITROGEN 23 MG/DL (7-18); CALCIUM LEVEL 9.2 MG/DL (8.8-10.2); CARBON DIOXIDE LEVEL 31 MEQ/L (21-32); CHLORIDE LEVEL 100 MEQ/L (98-107); CREATININE FOR GFR 1.05 MG/DL (0.70-1.30); GLOMERULAR FILTRATION RATE > 60.0 (>42); GLUCOSE, FASTING 79 MG/DL (70-100); POTASSIUM SERUM 3.3 MEQ/L (3.5-5.1); SODIUM LEVEL 141 MEQ/L (136-145)
[2020-05-19] MEDS: CIPROFLOXACIN 400 MG in IV 1 EA IV SCH ×2 (05:44→18:10)
[2020-05-19 07:35] VITALS: BP 143/66
[2020-05-19] MEDS ORDERED: POTASSIUM CHLORIDE 10 MEQ SR TABLET PO ONE (08:00)
[2020-05-19] MEDS: HEPARIN SOD (PORCINE) 5000UNITS/ML VIAL (J1644 PER 1000UNITS) SC SCH ×2 (08:20→21:27)
[2020-05-19 15:41] VITALS: BP 132/74
--- NOTE | 2020-05-19 19:57 | IPNPDOC ---
Date Seen The patient was seen on 05/19/20. Progress Note SUBJECTIVE: Abdominal distention present. Patient's NG came out accidently, order to place again. Endoscopy tomorrow. Denies increased pain, n/v/d, fevers or chills. OBJECTIVE: VITAL SIGNS: Please see belowin the prison and PHYSICAL EXAMINATION: GENERAL APPEARANCE: Awake, alert, and oriented. HEENT: NCAT, PERRLA, EOMI, anicteric CARDIOVASCULAR: RRR, no M/R/G LUNGS: CTAB, no rales, rhonchi or wheezing ABDOMEN: Hyperactive bowel sounds, distended, mild tenderness throughout, no r ebound or guarding. Urostomy bag in place with clear appearing urine. EXTREMITIES: No LE edema, WWP, 2+ DP pulses NEUROLOGICAL: CN2-12 intact, speech clear without dysarthria, moving all extremities PSYCHIATRIC: Aox3 LABORATORY DATA: See below. summarized above IMAGING: No new imaging, f/u XR after replacement of NG tube ASSESSMENT: 75 year old M with a history of UC who was recently admitted with gastric outlet obstruction and ultimately diagnosed with likely gastroparesis who returns with the same presentation with moderate/severe abdominal distention, nausea and emesis with decompression achieved by placement of NGT and imaging suggestive of gastric outlet obstruction. PLAN: 1. Nausea/Vomiting 2/2 Gastric Outlet Obstruction vs ileus -WBC wnl, afebrile, continued abdominal distension -NG previously in and came out. Replaced and will be confirming placement -Dr. Schroeder following (general surgery) -NPO -Abx stopped -Endoscopy in the AM 2. UTI -+UA on 05/06/20, culture grew E.coli and E.fecalis. Treated. -F/u repeat UA with reflex to culture -If positive, start on levofloxacin. 3. HTN -stable -NPO will resume meds once tolerating PO 4. DMII -Finger Sticks q6H due to NPO status, SSI Q6H, hypoglycemia protocol 5. Ulcerative Colitis -Hold maintenance medication while NPO 6. DVT Prophylaxis -TEDs/sequentials/heparin DISPOSITION: Endoscopy in the AM. Surgery following. Plan is home when discharge appropriate. VS, I&O, 24H, Fishbone Vital Signs/I&O Vital Signs Date Time Temp Pulse Resp B/P (MAP) Pulse Ox O2 Delivery O2 Flow Rate FiO2 6/30/20 15:41 97.8 83 18 132/74 (93) 99 Room Air I&O- Last 24 Hours up to 6 AM 05/19/20 06:00 Intake Total 800 ml Output Total 4600 ml Balance -3800 ml Laboratory Data 24H LABS Laboratory Tests 2 05/19/20 00:29: Bedside Glucose (Misc Panel) 108 05/19/20 04:54: Nucleated Red Blood Cells % (auto) 0.0, Anion Gap 10, Glomerular Filtration Rate > 60.0, Calcium Level 9.2, Magnesium Level 2.0 05/19/20 05:43: Bedside Glucose (Misc Panel) 75L 05/19/20 10:14: Bedside Glucose (Misc Panel) 105 05/19/20 17:42: Bedside Glucose (Misc Panel) 92 CBC/BMP Laboratory Tests 05/19/20 04:54 Current Medications Current Medications Medications (Trade) Dose Ordered Sig/Jen Route PRN Reason Start Time Stop Time Status Last Admin Dose Admin Ciprofloxacin 400 mg/IV Miscellaneous Supplies 200 ml @ 200 mls/hr Q12H IV 05/18/20 18:00 05/19/20 18:48 DC 05/19/20 18:10 Dextrose (Dextrose 50%) 25 ml ASDIRECTED PRN IV SEE LABEL COMMENTS 05/18/20 17:30 Erythromycin Lactobionate 500 mg/Sodium Chloride 260 ml @ 173.333 mls/hr Q6H IV 05/19/20 21:00 Glucagon (Glucagon) 1 mg ASDIRECTED PRN SC SEE LABEL COMMENTS 05/18/20 17:30 Glucose (Glucose) 16 GM ASDIRECTED PRN PO SEE LABEL COMMENTS 05/18/20 17:30 Heparin Sodium (Porcine) (Heparin) 5,000 units Q12H SC 05/18/20 21:00 05/19/20 08:20 Home Med (Med Rec Complete!) ASDIRECTED XX 05/18/20 18:00 05/18/20 18:04 DC Insulin Human Lispro (HumaLOG INSULIN) SEE PROTOCOL TABLE Q6H SC 05/18/20 18:00 05/19/20 00:36 Metoclopramide HCl (REGLAN INJection) 10 mg Q6HP PRN IV NAUSEA 05/18/20 21:00 05/19/20 18:46 DC Metoclopramide HCl (REGLAN INJection) 10 mg Q8H IV 05/19/20 20:00 Metronidazole 500 mg/IV Miscellaneous Supplies 100 ml @ 100 mls/hr Q8H IV 05/18/20 20:00 05/19/20 18:48 DC 05/19/20 12:00 Pantoprazole Sodium (Protonix) 40 mg Q24H IV 05/19/20 21:00 Sodium Chloride 1,000 ml @ 100 mls/hr Q10H IV 05/18/20 14:08 05/19/20 10:45 Allergies Coded Allergies: No Known Allergies (Unverified , 05/06/20) Jen Chaves MD May 19, 2020 19:57
[2020-05-19 20:00] VITALS: BP 143/74
[2020-05-19] MEDS: ERYTHROMYCIN LACTOBIONATE INJ 500 MG in NS 250 ML IV SCH (21:27)
[2020-05-19] MEDS: METOCLOPRAMIDE INJ 10MG/2ML VIAL (J2765 PER 1) IV SCH (21:28)
[2020-05-19] MEDS: PANTOPRAZOLE 40MG VIAL (C9113 PER 1) IV SCH (22:00)
[2020-05-20] VITALS: BP 100/60
[2020-05-20] MEDS: ERYTHROMYCIN LACTOBIONATE INJ 500 MG in NS 250 ML IV SCH ×4 (02:58→21:36)
[2020-05-20] MEDS: NS 1,000 ML IV SCH ×4 (02:58→20:14)
[2020-05-20 04:00] VITALS: BP 139/77
--- NOTE | 2020-05-20 04:16 | REPVR ---
PROCEDURE INFORMATION: Exam: XR Abdomen, 1 View Exam date and time: 05/19/2020 8:03 PM Age: 75 years old Clinical indication: Device placement; Gi device; Nasogastric tube; Additional info: Ng tube placement TECHNIQUE: Imaging protocol: XR of the abdomen. Views: Frontal supine view of the abdomen. 1 View. COMPARISON: CR Abdomen,Flat Upright,PA CHEST 05/18/2020 2:10 PM FINDINGS: Tubes, catheters and devices: There is an NG tube with the tip in the stomach. Gastrointestinal tract: There is irregular, stippled hyperdensity on the left side of the abdomen of uncertain etiology, possibly hyperdense ingested material within the stomach or bowel. There is a circular lucency centrally in the abdomen, which may be a dilated loop of small bowel, but may be related to a ventral hernia. Correlation with the recent prior CT scan is recommended. Intraperitoneal space: Surgical clips are noted in the pelvis. Bones/joints: Fixation hardware seen in the lumbar spine. IMPRESSION: NG tube tip is in the stomach. Electronically signed by: Kathy Whitehead On 05/20/2020 04:16:04 AM
[2020-05-20 04:29] LABS: HEMATOCRIT 36.6 % (42.0-52.0); HEMOGLOBIN 11.8 g/dl (13.5-17.5); MEAN CORPUSCULAR HEMOGLOBIN 32.2 pg (27.0-33.0); MEAN CORPUSCULAR HGB CONC 32.2 g/dl (32.0-36.5); MEAN CORPUSCULAR VOLUME 99.7 fl (80.0-96.0); PLATELET COUNT, AUTOMATED 377 10^3/uL (150-450); RED BLOOD COUNT 3.67 10^6/uL (4.30-6.10); WHITE BLOOD COUNT 7.1 10^3/uL (4.0-10.0)
[2020-05-20 04:59] LABS: ALBUMIN 2.6 GM/DL (3.2-5.2); ALT/SGPT 29 U/L (12-78); BILIRUBIN,TOTAL 1.1 MG/DL (0.2-1.0); BLOOD UREA NITROGEN 16 MG/DL (7-18); CALCIUM LEVEL 8.4 MG/DL (8.8-10.2); CARBON DIOXIDE LEVEL 29 MEQ/L (21-32); CHLORIDE LEVEL 101 MEQ/L (98-107); CREATININE FOR GFR 0.95 MG/DL (0.70-1.30); GLOMERULAR FILTRATION RATE > 60.0 (>42); GLUCOSE, FASTING 100 MG/DL (70-100); POTASSIUM SERUM 3.2 MEQ/L (3.5-5.1); SODIUM LEVEL 139 MEQ/L (136-145); TOTAL PROTEIN 6.4 GM/DL (6.4-8.2)
[2020-05-20] MEDS: HumaLOG INSULIN (NovoLOG) PER UNIT SC SCH ×3 (06:00→18:00)
[2020-05-20] MEDS: METOCLOPRAMIDE INJ 10MG/2ML VIAL (J2765 PER 1) IV SCH ×3 (06:30→20:15)
[2020-05-20] MEDS: HEPARIN SOD (PORCINE) 5000UNITS/ML VIAL (J1644 PER 1000UNITS) SC SCH ×2 (07:43→20:15)
[2020-05-20] MEDS ORDERED: LIDOCAINE 2% 100MG/5ML SDV (FOR ANES.) As Ordered ONE (09:06)
[2020-05-20] MEDS ORDERED: propofoL 200 MG/20 ML VIAL As Ordered ONE (09:06)
--- NOTE | 2020-05-20 09:51 | IPN ---
DATE: 05/20/2020 Drake is having some loose stool into his ostomy. He feels less distended. No fever or chills. Endoscopy is planned for later today. PHYSICAL EXAMINATION: Afebrile. 139/77. Vital signs stable. Lungs clear. Heart regular rhythm. Abdomen soft, distended, though less than yesterday per patient, nontender. Loose stool in the ostomy bag. No peripheral edema. LABS: White count 7.1, hemoglobin 11.8, platelets 377. Sodium 139, potassium 3.2, BUN 16, creatinine 0.8, glucose 100. IMPRESSION: 1. Gastric outlet obstruction versus ileus. Endoscopy for later today. Nasogastric tube is in place. 2. Recent urinary tract infection (UTI). Urine culture is pending. 3. Hypertension. Well controlled with current regimen. 4. Diabetes. Currently nothing by mouth (n.p.o.). Finger sticks with coverage and no basal insulin. 5. Hypokalemia. Probably from nasogastric suctioning. I have ordered a few potassium runs and followup labs have been ordered for the morning.
--- NOTE | 2020-05-20 09:55 | IPNPDOC ---
Text Note Date of Service The patient was seen on 05/20/20. NOTE Patient has been readmitted for continuing bouts of nausea and vomiting and fo und to have a markedly enlarged stomach. NGT decompression done with improvement of symptoms. No prior history of ulcers or endoscopy. during the last admission he had an UGIS done which was not too revealing. VS: stable I/O: NGT: 1850 mLs yesterday / 450 mL overnight On examination overall comfortable, has been having hiccups ngt in place with light bilious output abdomen soft, protuberant, round, distended, (+) upper midline hernia, thin abdominal wall, (+) rlq urostomy functioning, clear yellow urine nontender on palpation Impression/Plans gastric retention, mechanical obstruction vs gastroparesis for endoscopy today will set up for gastric emptying scan afterwards continue with protonix, reglan, erythromycin base for gastric retention/gastroparesis VS,Fishbone, I+O VS, Fishbone, I+O Laboratory Tests 05/20/20 04:00 Vital Signs Date Time Temp Pulse Resp B/P (MAP) Pulse Ox O2 Delivery O2 Flow Rate FiO2 05/20/20 04:00 97.4 75 20 139/77 (97) 92 Room Air I&O- Last 24 Hours up to 6 AM 05/20/20 06:00 Intake Total 820 ml Output Total 2720 ml Balance -1900 ml MAGDI HUDSON MD May 20, 2020 09:55
[2020-05-20] MEDS: KCL 10MEQ/100ML SWI (KRUN) 10 MEQ in IV 1 EA IV SCH ×4 (10:33→17:13)
[2020-05-20] MEDS ORDERED: MIDAZOLAM INJ 2MG/2ML VIAL (J2250 PER 1MG) As Ordered ONE (11:47)
[2020-05-20] MEDS ORDERED: fentaNYL 100 MCG/2 ML INJECTION (J3010) As Ordered ONE (11:48)
--- NOTE | 2020-05-20 12:33 | ROOR ---
Patient Name: Drake Martinez Procedure Date: 05/20/2020 11:41 AM Date of : 1945 Age: 75 Room: [facility] Gender: Male Note Status: Finalized Procedure: Upper GI endoscopy Indications: Abnormal CT of the GI tract, Nausea with vomiting Providers: Yvan Schroeder MD Referring MD: Elza Bertrand, Admin. Requesting Provider: Medicines: See the Anesthesia note for documentation of the administered medications Complications: No immediate complications. Procedure: Pre-Anesthesia Assessment: - Prior to the procedure, a History and Physical was performed, and patient medications and allergies were reviewed. The patient is competent. The risks and benefits of the procedure and the sedation options and risks were discussed with the patient. All questions were answered and informed consent was obtained. Patient identification and proposed procedure were verified by the physician, the nurse and the anesthesiologist in the endoscopy suite. Mental Status Examination: alert and oriented. Airway Examination: normal oropharyngeal airway and neck mobility. Respiratory Examination: clear to auscultation. CV Examination: normal. Prophylactic Antibiotics: The patient does not require prophylactic antibiotics. Prior Anticoagulants: The patient has taken no previous anticoagulant or antiplatelet agents except for aspirin. ASA Grade Assessment: III - A patient with severe systemic disease. After reviewing the risks and benefits, the patient was deemed in satisfactory condition to undergo the procedure. The anesthesia plan was to use moderate sedation / analgesia (conscious sedation). Immediately prior to administration of medications, the patient was re-assessed for adequacy to receive sedatives. The heart rate, respiratory rate, oxygen saturations, blood pressure, adequacy of pulmonary ventilation, and response to care were monitored throughout the procedure. The physical status of the patient was re-assessed after the procedure. The Endoscope was introduced through the mouth, and advanced to the duodenal bulb. The upper GI endoscopy was technically difficult and complex due to presence of food. Successful completion of the procedure was aided by I switched to a pediatric colonoscope. The patient tolerated the procedure fairly well. Findings: There is no endoscopic evidence of bleeding, inflammation, stricture, ulcerations or Det in the entire esophagus. Stomach is filled with solid food and liquid, markedly elongated and enlarged. The regular endoscope not able to traverse the whole stomach due to enlargement. Pyloric opening is open. Most of the stomach mucosa is covered wtih food and debris, not able to be examined. 1100 mL suctioned out. I switched to a pediatric colonoscope for length. There is some shallow scattered ulcers at the mid body, no ulcers in the pyloric channel, Estimated blood loss: none. Extrinsic appearing obstruction at the duodenal bulb, not able to be traversed, opened up, some slight mucosal erythema, edema, bulging internally but no obvious mass, ulceration, inflammation noted. This was biopsied with a cold forceps for histology. Estimated blood loss was minimal. The scope was withdrawn and replaced with the pediatric colonoscope because of difficulty passing the scope. 1100 mL of fluid suctioned out. Still a lot of solid and liquid retained food in the stomach, only about 1.2 of the stomach visible at the end Impression: - likely extrinsic obstruction to duodenum Recommendation: - Admit the patient to hospital long for ongoing care. - Perform magnetic resonance imaging (MRI) with gadolinium at appointment to be scheduled. Yvan Schroeder MD Yvan Schroeder MD 05/20/2020 12:33:38 PM Electronically signed by Yvan Schroeder MD Number of Addenda: 0 Note Initiated On: 05/20/2020 11:41 AM Estimated Blood Loss: Estimated blood loss: none.
[2020-05-20 13:00] VITALS: BP 129/83
[2020-05-20] MEDS ORDERED: PROHANCE 279.3MG/ML 15ML VIAL As Ordered ONE (13:47)
[2020-05-20] MEDS ORDERED: PROHANCE 279.3MG/ML 5ML VIAL As Ordered ONE (13:47)
[2020-05-20 14:00] VITALS: BP 130/77
--- NOTE | 2020-05-20 15:06 | REP ---
MRI ABDOMEN WITHOUT AND WITH INTRAVENOUS GADOLINIUM: HISTORY: Duodenal obstruction. Rule out ampullary or pancreatic mass. Comparison CT study May 18, 2020. Gadolinium enhancement dose 19 mL of intravenous ProHance. MR TECHNIQUE: Axial and coronal T1- and T2-weighted sequences include spin-echo, fast spin echo, in and [id number], and dynamically acquired sequential post contrast T1 fat sat images. MRI FINDINGS: There is massive distension of the stomach with air fluid level as on recent CT. There is no visible pancreatic mass. I do not resolve a duodenal mass. The duodenal C-loop lumen is not dilated. The duodenal bulb is fluid-filled and somewhat prominent. No pancreatic mass is seen. There is mild prominence of the pancreatic duct. The CBD is 1.1 cm in thickness and there is mild intrahepatic biliary ductal dilation. No obstructive lesion is seen. Mild bilateral hydronephrosis is noted as before. There is no evidence of ascites. Postcontrast images show no abnormal vasculature or abnormal area of enhancement. IMPRESSION: Gastric outlet/proximal duodenal obstruction pattern persists. No mass lesion is visible. There is mild intrahepatic and extrahepatic biliary ductal dilation. Mild pancreatic duct dilation is seen. No mass lesion is observed. Electronically Signed by Saurabh Frank MD 05/20/2020 03:12 P
[2020-05-20] MEDS ORDERED: KCL 10MEQ IN STERILE WATER 100ML As Ordered ONE (17:09)
[2020-05-20] MEDS: PANTOPRAZOLE 40MG VIAL (C9113 PER 1) IV SCH (20:15)
--- NOTE | 2020-05-20 21:05 | REPVR ---
PROCEDURE INFORMATION: Exam: XR Chest, 1 View Exam date and time: 05/20/2020 8:18 PM Age: 75 years old Clinical indication: Device placement; Ng tube; Additional info: Confirmation ng tube placement TECHNIQUE: Imaging protocol: XR of the chest Views: 1 view. COMPARISON: CR Abdomen,Flat Upright,PA CHEST 05/18/2020 2:10 PM FINDINGS: Tubes, catheters and devices: A feeding tube is identified and extends below the level of the hemidiaphragms. Lungs: There is an increase in interstitial markings bilaterally, which is nonspecific. Possible etiologies include interstitial edema and atypical infection. Airspace disease identified within the left lower lung zone, which has progressed compared to the prior study. This is suggestive of atelectatic change or pneumonia. Pleural space: No pleural effusion. No pneumothorax. Heart/Mediastinum: No cardiomegaly. Bones/joints: Hypertrophic degenerative changes are noted within the spine. Levoscoliosis of the thoracic spine. IMPRESSION: 1. Airspace disease identified within the left lower lung zone, which has progressed compared to the prior study. This is suggestive of atelectatic change or pneumonia. Clinical correlation and follow-up radiographs are recommended. 2. A feeding tube is identified and extends below the level of the hemidiaphragms. 3. There is an increase in interstitial markings bilaterally, which is nonspecific. Possible etiologies include interstitial edema and atypical infection. Electronically signed by: Freddy Singh On 05/20/2020 21:05:01 PM
[2020-05-20 22:00] VITALS: BP 137/72
[2020-05-21] MEDS: METOCLOPRAMIDE INJ 10MG/2ML VIAL (J2765 PER 1) IV SCH ×3 (03:15→20:18)
[2020-05-21] MEDS: ERYTHROMYCIN LACTOBIONATE INJ 500 MG in NS 250 ML IV SCH ×4 (03:15→21:44)
[2020-05-21 06:00] VITALS: BP 133/71
[2020-05-21] MEDS: HumaLOG INSULIN (NovoLOG) PER UNIT SC SCH ×5 (06:00→23:10)
[2020-05-21 06:02] LABS: HEMOGLOBIN 11.3 g/dl (13.5-17.5); MEAN CORPUSCULAR HEMOGLOBIN 32.5 pg (27.0-33.0); MEAN CORPUSCULAR HGB CONC 32.3 g/dl (32.0-36.5); MEAN CORPUSCULAR VOLUME 100.6 fl (80.0-96.0); PLATELET COUNT, AUTOMATED 378 10^3/uL (150-450); RED BLOOD COUNT 3.48 10^6/uL (4.30-6.10); WHITE BLOOD COUNT 14.5 10^3/uL (4.0-10.0)
[2020-05-21 06:15] LABS: ALBUMIN 2.4 GM/DL (3.2-5.2); ALT/SGPT 43 U/L (12-78); BILIRUBIN,TOTAL 1.2 MG/DL (0.2-1.0); BLOOD UREA NITROGEN 9 MG/DL (7-18); CALCIUM LEVEL 8.2 MG/DL (8.8-10.2); CARBON DIOXIDE LEVEL 22 MEQ/L (21-32); CHLORIDE LEVEL 108 MEQ/L (98-107); CREATININE FOR GFR 0.77 MG/DL (0.70-1.30); GLOMERULAR FILTRATION RATE > 60.0 (>42); GLUCOSE, FASTING 100 MG/DL (70-100); SODIUM LEVEL 141 MEQ/L (136-145); TOTAL PROTEIN 6.7 GM/DL (6.4-8.2)
[2020-05-21] MEDS ORDERED: KCL 40MEQ in NS 1000ML 1,000 ML IV SCH (07:10)
[2020-05-21] MEDS: HEPARIN SOD (PORCINE) 5000UNITS/ML VIAL (J1644 PER 1000UNITS) SC SCH ×2 (08:08→20:18)
--- NOTE | 2020-05-21 12:22 | IPNPDOC ---
Text Note Date of Service The patient was seen on 05/21/20. NOTE Subjective: Patient is a 75-year-old male with a PMHx of Bladder CA (2016, s/p Cystectomy and diverting urostomy), Prostate CA (s/p prostatectomy), CAD s/p RCA stent (1998), HTN, DM2, Ulcerative colitis, who presented to the hospital with abdominal pain and nausea Recently admitted on 05/06- 05/11 for gastric outlet obstruction ultimately presumed 2/2 gastroparesis and was discharged on Reglan with plan for GI outpatient follow up. During that admission, patient was found to have Escherichia coli/Enterococcus faecalis urinary tract infection and was treated with ceftriaxone. Patient was managed conservatively by surgery who recommended outpatient gastroenterology and gastric emptying studies. In the emergency room, patient had imaging studies that were completed that revealed a distended stomach NG tube was placed after Gen. surgery consultation and 1600 mL of fluid was removed. Patient ultimately went for an EGD on 05/20/2020 and was evidence of duodenal extrinsic obstruction of the second portion. Patient was seen and examined at the bedside. . Currently, patient reports that he's feeling fine with NG tube in place. . He denies chest pain, shortness of breath, palpitations, abdominal pain, diarrhea, or urinary discomfort. Objective: Vitals (See below) General: Lying in bed, appears comfortable, AAOx3 HEENT: NC, AT CVS: +S1S2 Lungs: Fair air entry b/l, no appreciable wheezing, rhonchi or crackles Abdomen: Soft, ND, NT, + Urostomy Extremities: - Edema, - Calf tenderness Assessment and plan: Nausea/Vomiting / Abdominal pain - likely 2/2 Gastric Outlet Obstruction - possibly 2/2 extrinsic compression - Currently, patient reports that he feels fine with NG tube in place - Physical does reveal hypoactive bowel sounds - s/p EGD without any specific explaining etiology - CT abdomen / pelvis 05/18: Recurrent massive gastric distension with ingested material and fluid. Gastric outlet obstruction pattern. No evidence of free air. Right-sided hydronephrosis associated with ileal diversion enterostomy. Postop changes in the abdomen and lumbar spine. - MRI abdomen 05/20:Gastric outlet/proximal duodenal obstruction pattern persists. No mass lesion is visible. There is mild intrahepatic and extrahepatic biliary ductal dilation. Mild pancreatic duct dilation is seen. No mass lesion is observed. - General surgery on consultation; appreciate their input; plan for gastric bypass surgery likely next week - Patient will have PICC line placed for TPN nutrition Hx of UTI with E. Coli / Enterococcus faecalis - Urine culture 05/20: Negative for any signs of infection HTN - BP well controlled - Currently not on any medications NIDDM2 - c/w ISS Ulcerative Colitis - Medications are on hold while patient is nothing by mouth GI prophylaxis - c/w Protonix DVT prophylaxis - c/w Heparin Disposition: - Plan for gastric bypass surgery next week - Will have PICC line placed today for TPN nutrition VS,Fishbone, I+O VS, Fishbone, I+O Laboratory Tests 05/21/20 05:23 Vital Signs Date Time Temp Pulse Resp B/P (MAP) Pulse Ox O2 Delivery O2 Flow Rate FiO2 05/21/20 06:00 98.2 91 18 133/71 (91) 94 Room Air I&O- Last 24 Hours up to 6 AM 05/21/20 06:00 Intake Total 1620 ml Output Total 2020 ml Balance -400 ml GIANCARLO TORO MD May 21, 2020 12:22
[2020-05-21 14:00] VITALS: BP 136/78
[2020-05-21] MEDS ORDERED: LIDOCAINE 1% MDV 20ML VIAL As Ordered ONE (16:40)
[2020-05-21 18:00] VITALS: BP 167/91
[2020-05-21] MEDS ORDERED: AMINO AC/ELECTROLYTE/DEX/CALC 2,000 ML IV SCH (18:00)
[2020-05-21] MEDS ORDERED: FAT EMULSION IV 20% 500 ML IV SCH (18:00)
[2020-05-21] MEDS ORDERED: SODIUM CHLORIDE 0.9% INJ 10 ML SYR IV PRN (18:00)
[2020-05-21] MEDS: SODIUM CHLORIDE 0.9% INJ 10 ML SYR IV SCH (18:20)
[2020-05-21 20:00] VITALS: BP 147/65
[2020-05-21] MEDS: PANTOPRAZOLE 40MG VIAL (C9113 PER 1) IV SCH (20:18)
[2020-05-21] MEDS: LABETALOL 100MG/20ML VIAL IV SCH (21:44)
[2020-05-22] VITALS (7 sets, daily range): BP systolic 138–165; BP diastolic 64–80
[2020-05-22] MEDS: ERYTHROMYCIN LACTOBIONATE INJ 500 MG in NS 250 ML IV SCH ×2 (04:01→09:31)
[2020-05-22] MEDS: METOCLOPRAMIDE INJ 10MG/2ML VIAL (J2765 PER 1) IV SCH ×2 (04:01→12:23)
[2020-05-22] MEDS: LABETALOL 100MG/20ML VIAL IV SCH ×2 (04:02→08:51)
[2020-05-22 05:59] LABS: HEMATOCRIT 33.7 % (42.0-52.0); MEAN CORPUSCULAR HEMOGLOBIN 32.7 pg (27.0-33.0); MEAN CORPUSCULAR HGB CONC 32.6 g/dl (32.0-36.5); MEAN CORPUSCULAR VOLUME 100.3 fl (80.0-96.0); PLATELET COUNT, AUTOMATED 352 10^3/uL (150-450); RED BLOOD COUNT 3.36 10^6/uL (4.30-6.10); WHITE BLOOD COUNT 5.8 10^3/uL (4.0-10.0)
[2020-05-22 06:41] LABS: ALBUMIN 2.3 GM/DL (3.2-5.2); ALT/SGPT 37 U/L (12-78); BILIRUBIN,TOTAL 0.9 MG/DL (0.2-1.0); BLOOD UREA NITROGEN 11 MG/DL (7-18); CALCIUM LEVEL 8.1 MG/DL (8.8-10.2); CARBON DIOXIDE LEVEL 27 MEQ/L (21-32); CHLORIDE LEVEL 109 MEQ/L (98-107); CREATININE FOR GFR 0.73 MG/DL (0.70-1.30); GLOMERULAR FILTRATION RATE > 60.0 (>42); GLUCOSE, FASTING 218 MG/DL (70-100); POTASSIUM SERUM 2.9 MEQ/L (3.5-5.1); SODIUM LEVEL 141 MEQ/L (136-145); TOTAL PROTEIN 5.9 GM/DL (6.4-8.2)
[2020-05-22] MEDS: HumaLOG INSULIN (NovoLOG) PER UNIT SC SCH ×2 (06:53→12:23)
[2020-05-22] MEDS: SODIUM CHLORIDE 0.9% INJ 10 ML SYR IV SCH (06:53)
[2020-05-22] MEDS ORDERED: KCL 10MEQ/100ML SWI (KRUN) 10 MEQ in IV 1 EA IV SCH (07:00)
[2020-05-22] MEDS ORDERED: KCL 10MEQ/100ML SWI (KRUN) 10 MEQ in IV 1 EA IV ONE (08:00)
[2020-05-22 08:12] LABS: MAGNESIUM LEVEL 1.8 MG/DL (1.8-2.4)
[2020-05-22] MEDS: HEPARIN SOD (PORCINE) 5000UNITS/ML VIAL (J1644 PER 1000UNITS) SC SCH (08:52)
[2020-05-22] MEDS ORDERED: KCL 20MEQ IN 100ML SWI (KRUN) 20 MEQ in IV 1 EA IV ONE ×2 (09:00)
--- NOTE | 2020-05-22 11:40 | IPNPDOC ---
Text Note Date of Service The patient was seen on 05/22/20. NOTE Subjective: Patient is a 75-year-old male with a PMHx of Bladder CA (2016, s/p Cystectomy and diverting urostomy), Prostate CA (s/p prostatectomy), CAD s/p RCA stent (1998), HTN, DM2, Ulcerative colitis, who presented to the hospital with abdominal pain and nausea Recently admitted on 05/06- 05/11 for gastric outlet obstruction ultimately presumed 2/2 gastroparesis and was discharged on Reglan with plan for GI outpatient follow up. During that admission, patient was found to have Escherichia coli/Enterococcus faecalis urinary tract infection and was treated with ceftriaxone. Patient was managed conservatively by surgery who recommended outpatient gastroenterology and gastric emptying studies. In the emergency room, patient had imaging studies that were completed that revealed a distended stomach NG tube was placed after Gen. surgery consultation and 1600 mL of fluid was removed. Patient ultimately went for an EGD on 05/20/2020 and was evidence of duodenal extrinsic obstruction of the second portion. Patient was seen and examined at the bedside. Currently, patient reports that he feels fine. Denies nausea, vomiting, abdominal pain, diarrhea, or urinary discomfort. Does not express chest pain, jaundice breath or palpitations. Objective: Vitals (See below) General: Lying in bed, appears comfortable, AAOx3 HEENT: NC, AT CVS: +S1S2 Lungs: Air entry appears to be clear bilaterally without evidence of rhonchi, crackles or wheezing Abdomen: Soft, nondistended, nontender, + Urostomy Extremities: Lower extremities are free of any pitting edema, - Calf tenderness Assessment and plan: Nausea/Vomiting / Abdominal pain - likely 2/2 Gastric Outlet Obstruction - possibly 2/2 extrinsic compression - Denies nausea / vomiting / abdominal pain currently - NG tube in place - Hypoactive bowel sounds - s/p EGD without any specific explaining etiology - CT abdomen / pelvis 05/18: Recurrent massive gastric distension with ingested material and fluid. Gastric outlet obstruction pattern. No evidence of free air. Right-sided hydronephrosis associated with ileal diversion enterostomy. Postop changes in the abdomen and lumbar spine. - MRI abdomen 05/20:Gastric outlet/proximal duodenal obstruction pattern persists. No mass lesion is visible. There is mild intrahepatic and extrahepatic biliary ductal dilation. Mild pancreatic duct dilation is seen. No mass lesion is observed. - CA 19-9 elevated - General surgery on consultation; - possible gastric bypass surgery next week / will discuss with APRIL cerda about endoscopic US biopsy - s/p PICC line placed - c/w TPN nutrition Hx of UTI with E. Coli / Enterococcus faecalis - Urine culture 05/20: Negative for any signs of infection HTN - BP was elevated yesterday evening - Transferred to PCU for IV blood pressure control - Has been started on Labetalol NIDDM2 - c/w ISS Ulcerative Colitis - Medications are on hold while patient is nothing by mouth GI prophylaxis - c/w Protonix DVT prophylaxis - c/w Heparin Disposition: - s/p PICC line placement for TPN nutrition VS,Fishbone, I+O VS, Fishbone, I+O Laboratory Tests 05/22/20 05:31 Vital Signs Date Time Temp Pulse Resp B/P (MAP) Pulse Ox O2 Delivery O2 Flow Rate FiO2 05/22/20 08:00 97.7 81 16 165/78 (107) 92 Room Air I&O- Last 24 Hours up to 6 AM 05/22/20 06:00 Intake Total 1900 ml Output Total 3400 ml Balance -1500 ml GIANCARLO TORO MD May 22, 2020 11:40
[2020-05-22 12:52] LABS: BLOOD UREA NITROGEN 12 MG/DL (7-18); CALCIUM LEVEL 8.5 MG/DL (8.8-10.2); CARBON DIOXIDE LEVEL 27 MEQ/L (21-32); CHLORIDE LEVEL 106 MEQ/L (98-107); CREATININE FOR GFR 0.76 MG/DL (0.70-1.30); GLOMERULAR FILTRATION RATE > 60.0 (>42); GLUCOSE, FASTING 243 MG/DL (70-100); MAGNESIUM LEVEL 2.1 MG/DL (1.8-2.4); PHOSPHORUS LEVEL 2.7 MG/DL (2.5-4.9); POTASSIUM SERUM 3.1 MEQ/L (3.5-5.1); SODIUM LEVEL 140 MEQ/L (136-145)
--- NOTE | 2020-05-22 14:38 | DS.PDOC ---
Discharge Summary General Date of Admission May 18, 2020 at 16:29 Date of Discharge 05/21/2020 Discharge Summary PROCEDURES PERFORMED DURING STAY: EGD on 05/20/[address] Schroeder ADMITTING DIAGNOSES / DISCHARGE DIAGNOSES: Nausea/Vomiting / Abdominal pain - likely 2/2 Gastric Outlet Obstruction - possibly 2/2 extrinsic compression Hx of UTI with E. Coli / Enterococcus faecalis HTN NIDDM2 Ulcerative Colitis GI prophylaxis DVT prophylaxis COMPLICATIONS/CHIEF COMPLAINT: Nausea / Abdominal pain HISTORY OF PRESENT ILLNESS: Patient is a 75-year-old male with a PMHx of Bladder CA (2016, s/p Cystectomy and diverting urostomy), Prostate CA (s/p prostatectomy), CAD s/p RCA stent (1998), HTN, DM2, Ulcerative colitis, who presented to the hospital with abdominal pain and nausea Recently admitted on 05/06- 05/11 for gastric outlet obstruction ultimately presumed 2/2 gastroparesis and was discharged on Reglan with plan for GI outpatient follow up. During that admission, patient was found to have Escherichia coli/Enterococcus faecalis urinary tract infection and was treated with ceftriaxone. Patient was managed conservatively by surgery who recommended outpatient gastroenterology and gastric emptying studies. In the emergency room, patient had imaging studies that were completed that revealed a distended stomach NG tube was placed after Gen. surgery consultation and 1600 mL of fluid was removed. Patient ultimately went for an EGD on 05/20/2020 and was evidence of duodenal extrinsic obstruction of the second portion. HOSPITAL COURSE: Nausea/Vomiting / Abdominal pain - likely 2/2 Gastric Outlet Obstruction - possibly 2/2 extrinsic compression - Denies nausea / vomiting / abdominal pain currently - NG tube in place and continues to drain - Hypoactive bowel sounds / no abdominal tenderness - s/p EGD without any specific explaining etiology - CT abdomen / pelvis 05/18: Recurrent massive gastric distension with ingested material and fluid. Gastric outlet obstruction pattern. No evidence of free air. Right-sided hydronephrosis associated with ileal diversion enterostomy. Postop changes in the abdomen and lumbar spine. - MRI abdomen 05/20:Gastric outlet/proximal duodenal obstruction pattern persists. No mass lesion is visible. There is mild intrahepatic and extrahepatic biliary ductal dilation. Mild pancreatic duct dilation is seen. No mass lesion is observed. - CA 19-9 elevated - s/p PICC line placed - c/w TPN nutrition - Case discussed with general surgery; given patient has elevated CA 199 levels, patient will ultimately require endoscopic ultrasound to confirm diagnosis of suspected malignancy at the area of extrinsic compression - Case is been discussed with [facility] for transfer; patient has been accepted and will be transferred today Hx of UTI with E. Coli / Enterococcus faecalis - Urine culture 05/20: Negative for any signs of infection HTN - BP was elevated yesterday evening - Transferred to PCU for IV blood pressure control - Has been started on Labetalol for better blood pressure control NIDDM2 - c/w ISS Ulcerative Colitis - Medications are on hold while patient is nothing by mouth GI prophylaxis - c/w Protonix DVT prophylaxis - c/w Heparin DISCHARGE MEDICATIONS: Please see below. ALLERGIES: Please see below. PHYSICAL EXAMINATION ON DISCHARGE: Vitals (See below) General: Lying in bed, appears comfortable, AAOx3 HEENT: NC, AT CVS: +S1S2 Lungs: Air entry appears to be clear bilaterally without evidence of rhonchi, crackles or wheezing Abdomen: Soft, nondistended, nontender, + Urostomy Extremities: Lower extremities are free of any pitting edema, - Calf tenderness LABORATORY DATA: Please see below. ACTIVITY: [As tolerated]. DISCHARGE PLAN: Follow-up with Dr. Everett in [facility] Remain compliant with treatment plan and medications Return to the ER if you experience any problems DISPOSITION: Transfer to [facility] DISCHARGE CONDITION: [Stable]. TIME SPENT ON DISCHARGE: 35 minutes. Vital Signs/I&Os Vital Signs Date Time Temp Pulse Resp B/P (MAP) Pulse Ox O2 Delivery O2 Flow Rate FiO2 05/22/20 12:00 97.2 78 18 156/76 (102) 97 Room Air I&O- Last 24 Hours up to 6 AM 05/22/20 06:00 Intake Total 1900 ml Output Total 3400 ml Balance -1500 ml Laboratory Data Labs 24H Laboratory Tests 2 05/21/20 18:02: Bedside Glucose (Misc Panel) 90 05/21/20 23:00: Bedside Glucose (Misc Panel) 220H 05/22/20 05:31: Nucleated Red Blood Cells % (auto) 0.0, Anion Gap 5L, Glomerular Filtration Rate > 60.0, Calcium Level 8.1L, Magnesium Level 1.8, Total Bilirubin 0.9, Aspartate Amino Transf (AST/SGOT) 35, Alanine Aminotransferase (ALT/SGPT) 37, Alkaline Phosphatase 430H, Total Protein 5.9L, Albumin 2.3L, Albumin/Globulin Ratio 0.6 05/22/20 11:23: Bedside Glucose (Misc Panel) 241H 05/22/20 11:56: Anion Gap 7L, Glomerular Filtration Rate > 60.0, Calcium Level 8.5L, Phosphorus Level 2.7, Magnesium Level 2.1 CBC/BMP Laboratory Tests 05/22/20 05:31 05/22/20 11:56 FSBS Laboratory Tests Test 05/21/20 18:02 05/21/20 23:00 05/22/20 11:23 Range/Units Bedside Glucose (Misc Panel) 90 220 241 83-110 MG/DL Microbiology Microbiology 05/20/20 Urine Culture - Final, Complete Allergies Coded Allergies: No Known Allergies (Unverified , 05/06/20) GIANCARLO TORO MD May 22, 2020 14:38
[2020-05-22] MEDS ORDERED: LABETALOL 100MG/20ML VIAL IV SCH (15:00)
[2020-05-22] MEDS ORDERED: MULTIVITAMIN -ADULT INJECTION 10 ML, CR/CU/SE/MN/ZN INJ 1 ML, POTASSIUM CHLORIDE INJ 55... IV SCH ×4 (18:00)
[2020-05-22] MEDS ORDERED: HumaLOG INSULIN (NovoLOG) PER UNIT SC SCH (18:00)
[2020-05-22] MEDS ORDERED: FAT EMULSION IV 20% 500 ML IV SCH (18:00)
--- NOTE | 2020-05-22 18:33 | IPN ---
DATE: 05/22/2020 HISTORY: Patient is a 75-year-old man who was in the hospital for about a week and was discharged on 05/11/2020. That hospitalization was for abdominal distension and nausea and vomiting and evidence of sepsis from a urinary tract infection. There were questions about a possible gastric outlet obstruction based on a very large stomach noted by CT. He was readmitted about a week later with abdominal pain and distension and a nasogastric tube (NG) was placed with return of a large amount of retained gastric contents. An upper endoscopy on 05/20/2020 revealed a distended stomach with a large amount of retained food and a suggestion of extrinsic compression at the duodenal bulb level. An MRI showed distended stomach with narrowing of the duodenum, particularly in the third portion. The patient remains with an NG tube in place. Vital signs show that he has been afebrile over the past 24 hours. His pulse is in the high 70s to low 80s. Blood pressure is good. Intake and output day yesterday showed 2600 in with 2950 out. He had 1800 mL from the NG tube. PHYSICAL EXAMINATION: The patient is alert. At the moment, his NG tube is out as it had "fallen out" recently and the nurse is aware. He appears fairly comfortable. Heart exam shows a regular rhythm. The abdomen is mildly distended but soft and without any tenderness. Laboratory studies show a white count of 6, hemoglobin of 11, hematocrit 34 and a platelet count of 352,000. Chemistry profile shows a sodium of 141, potassium 2.9, chloride 109, CO2 of 27, BUN of 11, creatinine 0.7 and a glucose of 218. Total protein is 5.9 with an albumin of 2.3. I do note that he had a CA 19-9 level obtained on 05/21/2020, which is ruma high at 657.2 with a normal less than 35. IMPRESSION: Persistent duodenal obstruction of unclear etiology. Certainly the markedly elevated CA 19-9 is worrisome, though interestingly the MRI did not identify any sort of mass lesion. RECOMMENDATIONS: At this point, I would recommend continuing the NG tube for gastric decompression. Continuing the total parenteral nutrition (TPN) is certainly appropriate. Dr. Schroeder will be back in on 05/26/2020 and can address with the patient whether to proceed with a surgical bypass of his obstruction or whether further evaluation for possible underlying malignancy is appropriate. ERASMO
--- NOTE | 2020-06-01 08:01 | REP ---
PICC line insertion under ultrasound guidance. The procedure was performed by JIMMY Perea, under the direct supervision of Dr. Frank. The risks and benefits of the procedure were explained to the patient and informed consent was obtained both verbally and written. Directly prior to the start of the procedure, a formal timeout was completed in the procedure room. The basilic vein was localized using ultrasound guidance. The skin was prepped and draped in the sterile fashion. 1 ml 1% lidocaine 10 mg/ml was used as a local anesthetic. Using ultrasound guidance the left basilic vein was cannulated and a 0.018 guidewire was inserted and advanced to the SVC using fluoroscopic guidance. The needle was removed and a 5.5 Frisian dilator and peel-away sheath was inserted over the guidewire. A 5.5 Frisian double lumen catheter was cut to the length of 40 cm. The dilator was removed and the catheter was inserted over the guide wire with the tip ending in the SVC. The peel-away sheath was removed and the catheter was flushed with heparinized saline as per hospital protocol. The catheter was affixed to the skin and a sterile dressing was applied. The patient tolerated the procedure well and there were no immediate complications. 0.1 minutes of fluoroscopy time was utilized for this procedure. Some fluoroscopic images are performed with last image hold technology. These images require no additional radiation. Reviewed by JIMMY Harvey 05/21/2020 05:54 P Electronically Signed by Saurabh Frank MD 06/01/2020 07:52 A
== END 2020-05-22 15:39 | disposition short-term general hospital (02) | DRG 381 ==
LOC: M ED 13:43 → M ED INP 16:29 → CANRESERV 20:49 → ENRESERV 20:49 → M PCU 21:51 → M MSPAV 05-20 12:11 → M PCU 05-21 19:00
PROVIDERS: ADMIT Internal Medicine; ATTEND Internal Medicine
PROC: 0DB98ZX Excision of Duodenum, Via Natural or Artificial Opening Endoscopic, Diagnostic (ICD-10-PCS; principal; 2020-05-20 11:30)
PROC: 02HV33Z Insertion of Infusion Device into Superior Vena Cava, Percutaneous Approach (ICD-10-PCS; 2020-05-21)
DX: K31.5 Obstruction of duodenum (principal); K51.90 Ulcerative colitis, unspecified, without complications; N39.0 Urinary tract infection, site not specified; N13.0 Hydronephrosis with ureteropelvic junction obstruction; E87.6 Hypokalemia; B95.2 Enterococcus as the cause of diseases classified elsewhere; I25.10 Atherosclerotic heart disease of native coronary artery without angina pectoris; B96.20 Unspecified Escherichia coli [E. coli] as the cause of diseases classified elsewhere; E11.9 Type 2 diabetes mellitus without complications; I10 Essential (primary) hypertension; Z92.21 Personal history of antineoplastic chemotherapy; Z93.6 Other artificial openings of urinary tract status; Z87.891 Personal history of nicotine dependence; Z85.46 Personal history of malignant neoplasm of prostate; Z95.5 Presence of coronary angioplasty implant and graft; Z85.51 Personal history of malignant neoplasm of bladder; Z11.59 Encounter for screening for other viral diseases